=== PATIENT | female | born 1945 | race Caucasian/White ===

== ENCOUNTER → 2018-05-08 01:13 | Outpatient (CLI) | payer MEDICARE, SELFPAY ==
--- NOTE | 2018-05-08 10:34 | DI.REPORT_ITS ---
SYMPTOM/DIAGNOSIS: SCREENING, Z12.31 MAMMOGRAM: Mammograms were interpreted according to the usual protocol including computer analysis with CAD system, tomosynthesis and C view imaging. The breast tissue is of moderate radiodensity. There is no evidence of a mass. There are no suspicious calcifications. There has been no significant interval change when compared with prior images. Breast density category B. SUMMARY: No evidence of malignancy, Category 1-B. Yearly screening mammography is recommended. [facility] ASSESSMENT OF FINDINGS: Negative. Category 1. Patient will receive a letter notifying them of these results. BI-RADS category B. There are scattered areas of fibroglandular density.
== END ==
PROVIDERS: PCP Family Medicine; Visit Provider Family Medicine
DX: Z12.31 Encounter for screening mammogram for malignant neoplasm of breast (principal)
CPT/HCPCS: 77063; 77067

== ENCOUNTER 2019-04-22 12:01 | Outpatient (CLI) | payer MEDICARE, OTHER, SELFPAY ==
--- NOTE | 2019-04-22 11:45 | DI.RAD_ITS ---
SYMPTOMS/DIAGNOSIS: HIP PAIN, M25.559 RIGHT HIP AND PELVIS: Minimal degenerative changes are seen in the right hip. No acute fracture or dislocation is seen. The sacroiliac joints show mild degenerative changes. The symphysis pubis appears unremarkable. There is a sclerotic appearing focus on the right iliac bone not well characterized on this examination. Degenerative changes are seen in the spine. IMPRESSION: 1. Minimal degenerative changes of the right hip. 2. No acute abnormality. 3. Sclerotic focus in the right iliac bone. Further evaluation with x-ray of the pelvis with obliques may be obtained. CT scan may also be considered for further evaluation.
[2019-04-22 13:26] LABS: BUN 19 mg/dL (7-18); CREATININE 0.73 mg/dL (0.55-1.02); Calcium 9.3 mg/dL (8.5-10.1); Cholesterol 208 mg/dL (50-200); Glucose 93 mg/dL (70-100); HDL Cholesterol 67 mg/dL (40-60); Triglyceride 68 mg/dL (30-150)
[2019-04-22 13:27] LABS: ALT 30 U/L (12-78); AST 17 U/L (15-37); Alkaline Phosphatase 77 U/L (46-116); Anion Gap 8.5 mmol/L (3-11); Bilirubin, Total 0.4 mg/dL (0.2-1.0); CO2 28.5 mmol/L (21.0-32.0); Calculated LDL 128 mg/dL; Chloride 103 mmol/L (98-107); Potassium 4.3 mmol/L (3.5-5.1); Sodium 140 mmol/L (136-145); Total Protein 7.1 g/dL (6.4-8.2)
== END 2019-04-22 12:21 ==
PROVIDERS: PCP Family Medicine; Visit Provider Family Medicine
DX: M25.551 Pain in right hip (principal); E78.5 Hyperlipidemia, unspecified; M16.11 Unilateral primary osteoarthritis, right hip; R93.7 Abnormal findings on diagnostic imaging of other parts of musculoskeletal system
CPT/HCPCS: 36415; 80053; 80061; 83721; 73502

== ENCOUNTER 2020-05-03 02:06 | Outpatient (CLI) | payer MEDICARE, OTHER, SELFPAY ==
[2020-05-03 09:56] LABS: HCT 39.8 % (36.0-46.0); MCHC 32.7 % (32.0-36.0); MCV 91.7 fL (80-95); MPV 8.6 fL (8.0-11.0); Platelet Count 361 10^3/uL (130-400); RBC 4.34 10^6/uL (3.93-5.22); RDW 12.4 % (11.7-14.6); RDW-SD 41.7 fL; WBC 10.06 10^3/uL (4.4-10.8)
[2020-05-03 11:05] LABS: ALT 32 U/L (14-59); AST 19 U/L (15-37); Albumin 3.8 g/dL (3.4-5.0); Alkaline Phosphatase 71 U/L (46-116); Anion Gap 7.6 mmol/L (3-11); BUN 21 mg/dL (7-18); Bilirubin, Total 0.4 mg/dL (0.2-1.0); CO2 29.4 mmol/L (21.0-32.0); CREATININE 0.73 mg/dL (0.55-1.02); Calcium 9.3 mg/dL (8.5-10.1); Calculated LDL 100 mg/dL (<100); Chloride 103 mmol/L (98-107); Cholesterol 187 mg/dL (<200); Glucose 108 mg/dL (74-106); HDL Cholesterol 62 mg/dL (40-60); Potassium 4.2 mmol/L (3.5-5.1); Sodium 140 mmol/L (136-145); Total Protein 6.9 g/dL (6.4-8.2); Triglyceride 127 mg/dL (<150)
== END 2020-05-03 02:26 ==
PROVIDERS: PCP Family Medicine; Visit Provider Family Medicine
DX: E78.5 Hyperlipidemia, unspecified (principal); R26.89 Other abnormalities of gait and mobility; Z86.73 Personal history of transient ischemic attack (TIA), and cerebral infarction without residual deficits
CPT/HCPCS: 36415; 80053; 80061; 85027

== ENCOUNTER 2020-05-07 03:42 | Outpatient (CLI) | payer MEDICARE, OTHER, SELFPAY ==
--- NOTE | 2020-05-07 06:30 | DI.MAMMO_ITS ---
EXAM: MAMMO SCREENING CLINICAL HISTORY: screening,Z12.39 TECHNIQUE: Mammograms were interpreted according to the usual protocol including computer analysis w [employer] CAD system, tomosynthesis and C-view imaging. COMPARISON: FINDINGS: The breasts are of moderate density with fairly symmetrical distribution of fibroglandular tissue. N o dominant mass or clumped microcalcification is identified in either breast. The current examinatio n is compared with previous examinations including May 2018 and there has been no gross interval c hange in appearance in comparison with the prior studies. IMPRESSION: No specific evidence of malignancy at this time. Routine screening examinations are suggested at yea rly intervals in this age group according to the ACS ACR guidelines. BI-RADS Cat 1 - Negative: Breast Density - Category B - Scattered areas of fibroglandular density
== END 2020-05-07 04:02 ==
PROVIDERS: PCP Family Medicine; Visit Provider Family Medicine
DX: Z12.31 Encounter for screening mammogram for malignant neoplasm of breast (principal); R92.2 Inconclusive mammogram
CPT/HCPCS: 77063; 77067

== ENCOUNTER 2020-12-24 09:44 | Outpatient (CLI) | payer MEDICARE, OTHER, SELFPAY ==
[2020-12-25 13:23] LABS: COVID-19 RT-PCR UVMMC Result Negative (Negative)
== END 2020-12-24 09:45 | disposition home or self-care (01) ==
LOC: LBO 09:45
PROVIDERS: PCP Family Medicine; Visit Provider Family Medicine
DX: Z20.822 Contact with and (suspected) exposure to COVID-19 (principal); R05 Cough
CPT/HCPCS: U0003; U0005

== ENCOUNTER 2021-01-11 02:56 | Outpatient (CLI) | payer MEDICARE, OTHER, SELFPAY ==
[2021-01-12 12:24] LABS: COVID-19 RT-PCR UVMMC Result Negative (Negative)
== END 2021-01-11 02:57 | disposition home or self-care (01) ==
LOC: LBO 02:57
PROVIDERS: PCP Family Medicine; Visit Provider Family Medicine
DX: Z20.822 Contact with and (suspected) exposure to COVID-19 (principal)
CPT/HCPCS: U0003; U0005

== ENCOUNTER → 2021-01-20 13:21 | Outpatient (BNVA) | payer MEDICARE, OTHER, SELFPAY | PROVIDERS: PCP Family Medicine; Referring Provider Family Medicine; Visit Provider Physical Therapy Assistant | DX: Z12.11 Encounter for screening for malignant neoplasm of colon (principal); Z80.0 Family history of malignant neoplasm of digestive organs; I10 Essential (primary) hypertension ==

== ENCOUNTER 2021-02-02 04:14 | Outpatient (CLI) | payer MEDICARE, OTHER, SELFPAY ==
[2021-02-02 10:55] LABS: Source Nasal/Nares
[2021-02-02 18:49] LABS: COVID-19 PCR Negative (Negative)
== END 2021-02-02 04:15 | disposition home or self-care (01) ==
LOC: LBO 04:14
PROVIDERS: PCP Family Medicine; Visit Provider Surgery
DX: Z20.822 Contact with and (suspected) exposure to COVID-19 (principal); Z01.818 Encounter for other preprocedural examination
CPT/HCPCS: 87635

== ENCOUNTER 2021-02-04 11:43 | Day surgery (SDC) | payer MEDICARE, OTHER, SELFPAY ==
[2021-02-04 11:52] VITALS: BP 159/96; PULSE 83; RESP 16; TEMP 37.2; O2SAT 95
[2021-02-04] MEDS: Lactated Ringers 1,000 ML 80 ML IV (12:18)
--- NOTE | 2021-02-04 12:18 | W.ANESPRE ---
General Info Date of Service Date Performed: 02/04/21 Height: 5 ft Weight: 75.4 kg Body Mass Index (BMI): 32.4 Surgical Procedure: Operation Date: 02/04/21 12:50 Proposed Procedures Side Surgeon gayla Bay, Meds Allergies and Home Medications Allergies Allergy/AdvReac Type Severity Reaction Status Date / Time latex Allergy Intermediate Skin Rash Verified 02/04/21 11:57 as a child Sulfa (Sulfonamide Allergy Intermediate Hives Verified 02/04/21 11:57 Antibiotics) atorvastatin AdvReac Intermediate abdominal Verified 02/04/21 11:57 upset Home Medication Medication Instructions Recorded calcium carbonate 500 mg PO DAILY 12/20/12 multivitamin [Once Daily] 1 ea PO DAILY 12/20/12 omega-3 fatty acids-fish oil 1 ea PO DAILY 12/20/12 aspirin 81 mg tablet,delayed 81 mg PO DAILY #1 tab 04/29/20 release diazepam 2 mg tablet 2 mg PO QID PRN #50 tab-cap 04/29/20 rosuvastatin 5 mg tablet 5 mg PO Q48H #45 tab-cap 04/29/20 omeprazole 20 mg capsule,delayed 20 mg PO DAILY #30 cap 12/23/20 release acetaminophen 120 mg-codeine 12 5 ml PO Q8H PRN #118 ml 01/17/21 mg/5 mL oral solution albuterol sulfate 90 mcg/actuation 2 puff INHALATION Q8H #6.7 g 01/26/21 aerosol inhaler budesonide-formoterol HFA 80 2 puff INHALATION BID #10.2 g 01/31/21 mcg-4.5 mcg/actuation aerosol inhaler Current Visit Medications: Current Medications Generic Name Dose Route Start Last Admin Trade Name Freq PRN Reason Stop Dose Admin Ringer's Solution 1,000 mls @ 80 mls/hr 02/04/21 06:00 02/04/21 12:18 IV 03/05/21 23:59 80 mls/hr INFUSION AMMY Administration IV Miscellaneous Supplies 1 each 02/04/21 06:00 Iv Access IV 03/05/21 23:59 DIRECTED AMMY Sodium Chloride 0 ml 02/04/21 06:00 Normal Saline Flush 10 Ml Syr IV 03/05/21 23:59 PRN PRN Sodium Chloride 0 ml 02/04/21 06:00 Normal Saline 10 Ml Vial IJ 03/05/21 23:59 DIRECTED PRN Sterile Water 0 ml 02/04/21 06:00 Water,Injection,Sterile 10 Ml Vial IJ 03/05/21 23:59 DIRECTED PRN PFSH Active Problems Active Problems: Problem Status Onset Code 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 RENEE 01/14/18 (L) DR. RENEE History of arthroscopy of knee Hx of eye surgery post-cataract exctraction needed surgery for blurry eyes Tobacco Smoking/Tobacco Use Status: Never Passive smoking exposure: Yes Second hand exposure: Yes Alcohol Alcohol Intake: former Substance Use Substance use: Never Substance use type: does not use Counseling given: No Counseling provided: none Vital Signs and Lab Results Manually Entered Vital Signs Most Recent Manually Entered Vital Signs: Adult Blood Pressure: 159/96 Heart Rate: 83 Respirations: 16 Oxygen Saturation (%): 95 Temperature (C): 37.2 C Lab Results Blood Type / Crossmatch: No Data to Display Complete Blood Count: White Blood Count 10.06 10^3/uL (4.4-10.8) 05/03/20 09:48 05/03/20 Red Blood Count 4.34 10^6/uL (3.93-5.22) 05/03/20 09:48 05/03/20 Hemoglobin 13.0 g/dL (11.2-15.7) 05/03/20 09:48 05/03/20 Hematocrit 39.8 % (36.0-46.0) 05/03/20 09:48 05/03/20 Platelet Count 361 10^3/uL (130-400) 05/03/20 09:48 05/03/20 Complete Metabolic Panel: Sodium Level 140 mmol/L (136-145) 05/03/20 09:48 05/03/20 Potassium Level 4.2 mmol/L (3.5-5.1) 05/03/20 09:48 05/03/20 Chloride Level 103 mmol/L (98-107) 05/03/20 09:48 05/03/20 Carbon Dioxide Level 29.4 mmol/L (21.0-32.0) 05/03/20 09:48 05/03/20 Blood Urea Nitrogen 21 mg/dL (7-18) H 05/03/20 09:48 05/03/20 Creatinine 0.73 mg/dL (0.55-1.02) 05/03/20 09:48 05/03/20 Calcium Level 9.3 mg/dL (8.5-10.1) 05/03/20 09:48 05/03/20 Albumin 3.8 g/dL (3.4-5.0) 05/03/20 09:48 05/03/20 Glucose Level 108 mg/dL (74-106) H 05/03/20 09:48 05/03/20 Hemoglobin A1c 6.0 % (4.5-6.2) 12/18/17 10:45 12/18/17 Liver Function Panel: Alanine Aminotransferase (ALT/SGPT) 32 U/L (14-59) 05/03/20 09:48 05/03/20 Aspartate Amino Transf (AST/SGOT) 19 U/L (15-37) 05/03/20 09:48 05/03/20 Coagulation Panel: No Data to Display Cardiac Panel: No Data to Display Arterial Blood Gas: No Data to Display Venous Blood Gas: No Data to Display Pancreas Panel: No Data to Display Thyroid Panel: Thyroid Stimulating Hormone (TSH) 3.65 uIU/mL (0.36-3.74) 02/11/17 07:19 02/11/17 Infectious Disease: Coronavirus (COVID-19)(PCR) Negative (Negative) 02/02/21 08:52 02/02/21 Coronavirus 2019 Source Nasal/nares 02/02/21 08:52 02/02/21 Blood Cultures: No Data to Display Toxicology Panel: No Data to Display Imaging and Studies Imaging and Studies Echocardiogram Summary:: Anesthesia Assessment and Plan Anesthesia History Personal History: No History of Anesthesia Complications Family History: No Family History of Anesthesia Complications Exercise Tolerance Exercise Tolerance: Metabolic Equivalents>4 Pertinent Negatives Pertinent Negatives: No Symptoms of GERD (On medication and effective), No Major Cardiovascular Symptoms or Complaints and No Major Pulmonary Symptoms or Complaints (Chronic cough, inhaler helps) Cardiac & Pulmonary Exam Cardiac Exam: Normal S1/S2 Heart Sounds Pulmonary Exam: Clear Bilateral Breath Sounds Airway Exam Known Difficult Airway: No Mallampati Class: 2 Mouth Opening: Normal (> 3cm) Thyromental Distance: Less than 3 cm Neck Range of Motion: Full ROM Neck Circumference: Normal Teeth Condition: Normal Dentition ASA Classification ASA Score: ASA 2 Emergency Case?: No NPO Status NPO Status: NPO Clears >2 hours, Solids >8 hours Anesthesia Plan Anesthesia Technique: General Anesthesia Airway Planned: Natural Airway Monitors Used: Standard Monitors
--- NOTE | 2021-02-04 12:19 | W.COLOREPORT ---
Date of service: 02/04/21 Time of Service: 12:19 Colonoscopy Report Date of procedure: 02/04/21 Pre-op diagnosis general: family hx of CRC Post-op diagnosis procedure note: other (x2 polysp @ 80cm and diverticula ) Surgeon: Teresa Bay Anesthesia Type: General:No Airway Estimated blood loss (mL): 1 Pathology: other Complications: None Disposition: same day Prep: Miralax/Dulcolax Retraction Time: 10 Procedure Description: After informed consent was obtained the patient was taken to the procedure room and placed in a left decubitous position. Monitors were applied and a time out was done. The patients name, date of , procedure, allergies to medications and metal in their body was reviewed. The patient was then sedated. Once sedated and comfortable a rectal exam was done. External exam was normal. Internal exam revealed a normal sphincter tone and no palpable masses. The scope was then introduced and retrofelexed. GrADE I internal hemorrhoids were identified. The scope was then advanced to the cecum w/you difficulty. The TI and appendiceal orifice were identified. The prep was good. The scope was then slowly retracted over 10 minutes back into the rectum. She had x2 small 5mm flat polyps at 80 cm. They removed with a cold biopsy forcep. All specimen is retrieved and no bleeding is noted. She does have moderate diverticular disease confined to the sigmoid colon. There is no signs of active bleeding or infection. There are no AVMs or other abnormalities visualized on the colon today. The scope was removed and the patient was woken up and taken back to Same day surgery in stable condition. The patient tolerated the procedure well and there were no immediate complications. Follow up: The patient should follow up in 5 years (if you are still healthy for anesthesia), unless they develop changes in bowel habits or other new gastrointestinal complaints.
--- NOTE | 2021-02-04 12:19 | PDOC.DSDIS_ITS ---
Discharge Plan Disposition Patient Disposition: HOME Condition: Good Discharge Details Reason For Visit: colon scope Attending Provider: Teresa Bay Primary Care Provider: Tete Goins Home Meds and New Rx's Prescriptions: Continued omeprazole 20 mg capsule,delayed release(DR/EC) 20 mg PO DAILY Qty: 30 RF: 4 diazepam 2 mg tablet 2 mg PO QID PRN (Reason: anxiety) Qty: 50 RF: 0 rosuvastatin [Crestor] 5 mg tablet 5 mg PO Q48H Qty: 45 RF: 12 aspirin [Adult Low Dose Aspirin] 81 mg tablet,delayed release (DR/EC) 81 mg PO DAILY Qty: 1 RF: 0 multivitamin [Once Daily] 1 EACH tablet 1 ea PO DAILY RF: 0 calcium carbonate 500 MG tablet 500 mg PO DAILY RF: 0 omega-3 fatty acids-fish oil 1 EACH capsule 1 ea PO DAILY RF: 0 acetaminophen-codeine 120-12 mg/5 mL solution 5 ml PO Q8H PRN (Reason: pain) Qty: 118 RF: 3 albuterol sulfate 90 mcg/actuation HFA aerosol inhaler 2 puff inhalation Q8H Qty: 6.7 RF: 4 budesonide-formoterol [Symbicort] 80-4.5 mcg/actuation HFA aerosol inhaler 2 puff inhalation BID Qty: 10.2 RF: 2 Discontinued bisacodyl [Dulcolax (bisacodyl)] 5 mg tablet,delayed release (DR/EC) 5 mg PO ONCE Qty: 4 RF: 0 polyethylene glycol 3350 17 gram/dose powder 238 g PO ONCE Qty: 238 RF: 0 Discharge Instructions Additional Instructions: DSU Colonoscopy Post- Op Instructions Instructions for Everyone who is given Anesthesia: For your safety, please do the following for the next twenty-four (24) hours: *Do Not operate a motor vehicle (car, truck, motorcycle, etc.) *Do Not drink alcoholic beverages or use any recreational drugs for the first 24 hours or while taking pain medications. The medications in your body may have a reaction that can be dangerous. *Do Not make any important decisions or sign any important papers. Findings: x2 polyps. My office will send you a letter with the results of the polyp in approximately 3 weeks time Diverticula. Follow a high-fiber diet and avoid straining to move your bowels. Follow up: Repeat Colonoscopy in 5 yrs if still healthy for surgery. 1. No lifting over 20 pounds or strenuous activity for the first 24 hours after your procedure. After 24 hours there are no restrictions on your activity but you may feel fatigued for a few days. 2. After you arrive home you may have a light meal and return to your normal diet as you can tolerate it without feeling sick to your stomach. 3. You may have a bloated, gaseous feeling in your belly (abdomen) after a colonoscopy. Passing gas and belching will help. Walking or lying down on your left side with your knees flexed may relieve the discomfort. Call the office at [phone] (Office) or [phone] (Hospital) right away if you notice any of the following: a.Vomiting of blood or ?coffee ground stools?. b.Rectal bleeding 1Tbsp, blood clots or continuous bleeding. c.Severe belly (abdominal) pain. d.A hard distended belly (abdomen) and an inability to pass gas. 4. Please don?t expect to have a normal BM (bowel movement) for 2-3 days after your procedure. 5. If there are questions regarding the findings of your procedure, please contact your doctor 6. If you are unable to contact your doctor with a problem, contact the hospital at [phone]. 7. Continue all your regular medications unless directed otherwise. I understand the above instructions and have no questions. Signature of Patient or Adult Escort Name of Responsible Adult Escort Signature of Nurse Date/Time Activity:: as above Diet:: as above Discharge Orders Discharge Orders: Discharge Order (Routine); Ordered 02/03/21 Ordered By: Teresa Bay DS: Diagnosis Discharge Diagnosis (1) Family history of colon cancer: Status: Acute (2) Adenomatous polyps: Status: Acute
[2021-02-04 12:20] VITALS: BMI 32.4
[2021-02-04 12:30] VITALS: BP 159/96; PULSE 83; RESP 16; TEMPC 37.2; O2SAT 95
--- NOTE | 2021-02-04 12:54 | BOWEL_PTH ---
PATIENT: Judi Jackson LOC: [facility] U#:[id number] AGE/SX: 75/F ROOM: RE02/04/[address]: Teresa Bay : 1945 BED: DIS: 02/04/2021 SPEC #: [id number] RECD: 02/04/21 16:52 STATUS: LYNDSEY RENila #: [id number] MEDARDO: 02/04/21 12:[address]: Teresa Bay DEPT: Surgical Specimen RECD BY: Mercedes Cardona ENTERED: 02/04/21 16:52 SP TYPE: Bowel OTHR DR: Tete Goins MD, DC Tissues: 1 - BIOPSY BOWEL Procedures: GROSS AND MICRO LEVEL 4 Comments: [id number]
[2021-02-04 13:12] VITALS: BP 139/87; PULSE 80; RESP 16; TEMP 36.5; O2SAT 95
--- NOTE | 2021-02-04 14:00 | W.ANESPOSTOP ---
Postoperative Evaluation Date, Time and Location Date Performed: 02/04/21 Time Performed: 14:01 Patient Location: Day Surgery Unit Vital Signs Most Recent Imported Vital Signs: Most Recent Vital Signs Temp Pulse Resp BP Pulse Ox 36.5 C 80 16 139/87 95 02/04/21 13:12 02/04/21 13:12 02/04/21 13:12 02/04/21 13:12 02/04/21 13:12 Pain Score Most Recent Pain Score: Most Recent Pain Score Pain Level 0 02/04/21 13:12 Assessment Mental Status: Awake (Alert & Oriented to Patient Baseline) Airway and Respiratory Function: Patent airway with normal (patient baseline) respiratory exam Cardiovascular Function: Hemodynamically Stable Hydration Status: Adequately Hydrated Nausea & Vomiting: No Nausea or Vomiting Pain: Pt. Denies Any Pain Peripheral Nerve Block: Patient did not receive a nerve block
== END 2021-02-04 11:44 | disposition home or self-care (01) ==
PROVIDERS: PCP Family Medicine; Visit Provider Surgery
PROC: 0DJD8ZZ Inspection of Lower Intestinal Tract, Via Natural or Artificial Opening Endoscopic (ICD-10-PCS; CPT 45378; principal; 2021-02-04 12:45)
DX: Z12.11 Encounter for screening for malignant neoplasm of colon (principal); Z80.0 Family history of malignant neoplasm of digestive organs; D12.4 Benign neoplasm of descending colon; K57.30 Diverticulosis of large intestine without perforation or abscess without bleeding
CPT/HCPCS: 45380; 88305; J2001

== ENCOUNTER 2021-04-28 04:12 | Outpatient (CLI) | payer MEDICARE, OTHER, SELFPAY ==
[2021-04-28 11:32] LABS: Hemoglobin A1C 6.1 % (<5.7)
[2021-04-28 12:42] LABS: ALT 40 U/L (14-59); AST 25 U/L (15-37); Alkaline Phosphatase 74 U/L (46-116); Anion Gap 8.2 mmol/L (3-11); BUN 18 mg/dL (7-18); Bilirubin, Total 0.4 mg/dL (0.2-1.0); CO2 29.8 mmol/L (21.0-32.0); CREATININE 0.8 mg/dL (0.55-1.02); Calcium 9.1 mg/dL (8.5-10.1); Calculated LDL 125 mg/dL (<100); Chloride 104 mmol/L (98-107); Cholesterol 212 mg/dL (<200); Glucose 87 mg/dL (74-106); HDL Cholesterol 62 mg/dL (40-60); Potassium 4.4 mmol/L (3.5-5.1); Sodium 142 mmol/L (136-145); Total Protein 7.1 g/dL (6.4-8.2); Triglyceride 129 mg/dL (<150)
== END 2021-04-28 04:13 | disposition home or self-care (01) ==
LOC: LBO 04:12
PROVIDERS: PCP Family Medicine; Visit Provider Family Medicine
DX: E78.5 Hyperlipidemia, unspecified (principal); I10 Essential (primary) hypertension; E11.9 Type 2 diabetes mellitus without complications; Z86.73 Personal history of transient ischemic attack (TIA), and cerebral infarction without residual deficits
CPT/HCPCS: 36415; 80053; 80061; 83036

== ENCOUNTER 2021-05-30 01:57 | Outpatient (CLI) | payer MEDICARE, OTHER, SELFPAY ==
--- NOTE | 2021-05-30 07:30 | DI.MAMMO_ITS ---
Exam(s) MAMMO SCREENING EXAM: MAMMO SCREENING CLINICAL HISTORY: screening,Z12.39 TECHNIQUE: Bilateral full field digital CC and MLO mammographic images were obtained with 3D tomosyn thesis and utilizing computer aided detection (CAD). COMPARISON: Available for comparison. FINDINGS: Masses/Architectural Distortion: None seen. Microcalcifications: No suspicious pleomorphic-type are seen. Skin Thickening/Nipple Retraction: None. IMPRESSION: 1. No significant interval change with no specific features of malignancy noted. 2. Unless there is more urgent need, screening mammography is recommended, as per [employer] guidelines. BI-RADS Category 1 - Negative Breast Density - Category B - Scattered areas of fibroglandular density Breast density category C or D implies that the patient has dense breast tissue. Dense breast tissue is very common and is not abnormal but dense breast tissue can make it harder to find cancer on a ma mmogram. Also, dense breast tissue may increase their breast cancer risk. This information about the result of the mammogram report was provided to the patient to raise their awareness. Use this report when you speak with the patient about their risks for breast cancer, which includes their family hist ory. At that time, you may recommend for more screening tests (Ultrasound or MRI) as they might be us eful based on their risk. A negative radiographic report should not delay biopsy if a dominant or clinically suspicious mass is present. Up to ten percent of cancers are not identified on mammography. A negative report may reinforce clinical impression. Adenosis and dense breasts may obscure an underlying neoplasm. False positive reports average 6 to 10%. Patient will receive a letter notifying them of these results.
== END 2021-05-30 02:17 ==
PROVIDERS: PCP Family Medicine; Visit Provider Family Medicine
DX: Z12.31 Encounter for screening mammogram for malignant neoplasm of breast (principal)
CPT/HCPCS: 77063; 77067

== ENCOUNTER 2022-05-04 03:05 | Outpatient (CLI) | payer OTHER, SELFPAY ==
[2022-05-04 10:55] LABS: ALT 35 U/L (14-59); AST 20 U/L (15-37); Albumin 3.9 g/dL (3.4-5.0); Alkaline Phosphatase 74 U/L (46-116); Anion Gap 7.5 mmol/L (3-11); BUN 19 mg/dL (7-18); Bilirubin, Total 0.4 mg/dL (0.2-1.0); CO2 28.5 mmol/L (21.0-32.0); CREATININE 0.7 mg/dL (0.55-1.02); Calcium 9.1 mg/dL (8.5-10.1); Chloride 100 mmol/L (98-107); Glucose 96 mg/dL (74-106); Potassium 4.3 mmol/L (3.5-5.1); Sodium 136 mmol/L (136-145); Total Protein 7.2 g/dL (6.4-8.2)
[2022-05-04 11:11] LABS: Calculated LDL 127 mg/dL (<100); Cholesterol 209 mg/dL (<200); HDL Cholesterol 71 mg/dL (40-60); Triglyceride 56 mg/dL (<150)
== END 2022-05-04 03:06 | disposition home or self-care (01) ==
LOC: LBO 03:06
PROVIDERS: PCP Family Medicine; Visit Provider Family Medicine
DX: I10 Essential (primary) hypertension (principal); E11.9 Type 2 diabetes mellitus without complications; E78.5 Hyperlipidemia, unspecified; R26.89 Other abnormalities of gait and mobility
CPT/HCPCS: 36415; 80053; 80061

== ENCOUNTER → 2022-06-02 00:48 | Outpatient (CLI) | payer OTHER, SELFPAY ==
--- OUTSIDE RECORDS SUMMARY | 2022-06-02 00:51 | XMS_ITS | Encounter Summary ---
:1945 Author Organization [facility] [place] [address] Care Team Providers Name Role Phone Tete Goins MD Primary Care Provider Encounter Details Date Type Department Care Team Description 07/01/2015 Office Visit Physical Therapy at [facility], DR SYDNEY Larson; [facility] Lisa Spencer, PT [facility] PHYSICAL MEDICINE & [place] [address] [place] [address] Social History Tobacco Use Types Packs/Day Years Used Date Never Smoker Smokeless Tobacco: Never Used Sex Assigned at Date Recorded Not on file documented as of this encounter Progress Notes Lisa Garg, PT - 07/01/2015 3:15 PM EDT Physical Therapy Progress Note: Outpatient Date of Exam/First treatment: 04/28/2015 Date of Onset October 2013 Referring Provider: Leonardo Bowling MD Diagnosis: 1. Imbalance 2. Vertigo Medicare Cert Period: 04/28/2015 - 06/22/15, 06/23/15 - 08/18/15 G-Code: Mobility Status Modifier CURRENT CJ - At least 20 percent but less than 40 percent impaired, limited or restricted PROJECTED CI - At least 1 percent but less than 20 percent impaired, limited or restricted DISCHARGE Not Discharged Yet - Ongoing G Code Rationale: This G-Code and these disability modifiers were selected as the primary therapy goal based upon the patient's evaluation including the following functional test(s) DHI - Dizziness Handicapped Inventory and FGA - Functional Gait Assessment. Current ability measures, co-morbidities andclinical judgement were also used to select the disability modifier. This Patient's current G-Code functional level is 35% impaired based upon imbalance and gait instability revealed in examination, functional testing, and self-reported limitation related to dizziness/unsteadiness. Medicare Therapy G-Code Date Tracking: (Update G-Code status every 10 visits or when code changes) 1 2 3 4 5 6 7 8 9 10 04/28/15 05/04/15 05/24/15 05/31/15 06/15/15 06/22/15 07/01/15 Functional Limitations: Patient reports difficulty walking, reading, and is unable to perform several IADLs (driving, gardening, housework) secondary to imbalance Previous Level of Function: Independent, active S: Patient reports she is able to take 15 minute walks, and has noticed the sensation that she is still moving has decreased. Also feels better when descending stairs. O: Therex: Neuromuscular Re-Ed ([id number]) 45 min Treatment Provided: ?? Treadmill walking with head turns x 5 minutes ?? No pathway deviation noted today ?? Wall posture with chin tuck x10 sec hold ?? With red TB ER 3 x10 reps (added to HEP) ?? Flexibility: levator scapulae, UT, SCM (added to HEP) ?? Walking with diagonal head turns x 4 reps ?? No pathway deviation, good speed ?? VOR x2 - patient able to maintain focus on target without blurring/doubling ?? Balance board with head turns 3x30 seconds, mild instability initially but patient was able to maintain balance without UE support ?? Sit to stands on 2 foam with eyes closed 3x10 reps ?? MTEC compliant (L) 30 sec (R) 30 sec, ankle and hip strategies (added to HEP) ?? Walking with eyes closed x3 reps ?? 6.16-6.60 seconds to complete 20 ft, no pathway deviation or imbalance noted. ?? Tandem walking - 4-12 steps with practice Outcome measures: None this session Home Exercise Program: Pt was provided with written instruction, educated regarding and practiced the following exercises: 1. VOR x2 in standing 2. MTEC compliant 3. Walking with head turns - diagonal 4. Tandem stance 5. 360 degree pivots - discontinued 6. Sit to stands 7. Postural exercise: UT/LS/SCM stretches, wall posture with theraband ER Assessment: Pat presents with improvement in subjective symptoms, and was able to progress several exercises from HEP. Pat continues to benefit from PT for static and dynamic balance challenges, gait activities, and vestibular therex, and based upon current progression will be ready for discharge to home program in several visits. ST Goals: 05/26/15 (4 weeks) - extended to 07/26/15 1. Independent with home exercise program. 2. DVA without blurring or doubling of letters to decrease symptoms in crowds/busy visual MET 3. Walk with head turns without slowing or drift to improve balance looking around during ADL MET LT Goals 06/23/15 (8 weeks) - extended to 08/23/15 1. DHI 40 or lower to indicate functional improvement with regards to dizziness or unsteadiness MET 2. Improvement in FGA to >24 to demonstrate clinical improvement in balance and decreased risk for falls Plan: Frequency: 1 x/week x 8 weeks, tapering as appropriate based upon clinical and functional progress. Stretching, Therapeutic exercise, Patient/Family education, Body Mechanics, Posture, Home Exercise Program and Balance and Gait Training , vestibular therex Informed Consent: The patient understands and agrees to the physical therapy treatment plan and goals. Total Treatment time: 45 minutes Total Timed Code Treatment: 45 minutes Lisa Garg, PROSPER, DPT [facility] Department documented in this encounter Plan of Treatment Not on filedocumented as of this encounter Visit Diagnoses Diagnosis Imbalance Abnormality of gait Vertigo Dizziness and giddiness documented in this encounter Care Teams Engineer Third Assistant Relationship Specialty Start Date End Date Tete Goins MD PCP - General 04/28/[address] [place] [address] documented as of this encounter
--- OUTSIDE RECORDS SUMMARY | 2022-06-02 00:51 | XMS_ITS | Encounter Summary ---
:1945 Author Organization [facility] [place] [address] Care Team Providers Name Role Phone Tete Goins MD Primary Care Provider Reason for Visit Reason Onset Date Comments Appointment 08/06/2019 Encounter Details Date Type Department Care Team Description 08/06/2019 Telephone Ophthalmology at [facility] Jim Oliva MD Appointment [facility] [place] [address] [place] [address] [phone] (Wo rk) Social History Tobacco Use Types Packs/Day Years Used Date Never Smoker Smokeless Tobacco: Never Used Sex Assigned at Date Recorded Not on file documented as of this encounter Miscellaneous Notes Telephone Encounter - Evelin Wahl - 08/11/2019 12:19 PM EST Scheduled per Nilda Greene Telephone Encounter - Evelin Wahl - 08/06/2019 12:51 PM EST Left message for pt to call back to schedule appointment from referral yag ou Please schedule next available new patient yag w/ laser and add to wait list documented in this encounter Plan of Treatment Not on filedocumented as of this encounter Visit Diagnoses Not on filedocumented in this encounter Care Teams Croze Cutter Helper Relationship Specialty Start Date End Date Tete Goins MD PCP - General 04/28/[address] [place] [address] documented as of this encounter
--- OUTSIDE RECORDS SUMMARY | 2022-06-02 00:51 | XMS_ITS | Encounter Summary ---
:1945 Author Organization [facility] [place] [address] Care Team Providers Name Role Phone Tete Goins MD Primary Care Provider Encounter Details Date Type Department Care Team Description 04/28/2015 Office Visit Physical Therapy at [facility], DR SYDNEY Larson; [facility] Leonardo Dewey MD [facility] [place] [address] [place] [address] Lisa Garg, PT [facility] PHYSICAL MEDICINE & [place] [address] Social History Tobacco Use Types Packs/Day Years Used Date Never Smoker Smokeless Tobacco: Never Used Sex Assigned at Date Recorded Not on file documented as of this encounter Progress Notes Lisa Garg, PT - 04/28/2015 7:43 AM EDT Images from the original note were not included. Physical Therapy Initial Evaluation Note: Outpatient Date of Exam/First treatment: 04/28/2015 Date of Onset October 2013 Referring Provider: Leonardo Bowling MD Diagnosis: 1. Imbalance 2. Vertigo Medicare Cert Period: 04/28/2015 - 06/22/15 G-Code: Mobility Status Modifier CURRENT CK - At least 40 percent but less than 60 percent impaired, limited or restricted PROJECTED CI [...] This Patient's current G-Code functional level is 50% impaired based upon imbalance and gait instability revealed in examination, functional testing, and self-reported limitation related to dizziness/unsteadiness. Medicare Therapy G-Code Date Tracking: (Update G-Code status every 10 visits or when code changes) 1 2 3 4 5 6 7 8 9 10 04/28/15 Functional Limitations: Patient reports difficulty walking, reading, and is unable to perform several IADLs (driving, gardening, housework) secondary to imbalance Previous Level of Function: Independent, active Medical/Surgical History: refer to medical record Medications: refer to medical record History: Judi Jackson is a 69 y.o. female referred to physical therapy by Dr. Leonardo Bowling for evaluation of imbalance and dizziness. Patient was diagnosed with vertigo in October 2013, and reports since the onset of her dizziness she has had balance issues. Was referred to physical therapy by her PCP in [place] and was treated with Ivette maneuver, which helped a little bit but did notresolve her symptoms completely. Initially, patient experienced vertigo when turning over in bed, with symptoms of the room spinning which would last 30 seconds. Currently, she no longer has sensation of room spinning, but does notice a floating sensation in her head when standing or sitting quickly, looking up or down, bending down to knot picker cloth an object or turning over in bed. Notes difficulty withher balance when walking on unstable surfaces or in unfamiliar places, and endorses holding onto someone for security. Tends to lose her balance to the right. Is unable to participate in walking for exercise, gardening or driving, and would like to be able to return to activities she enjoys. Hearing loss: no Tinnitus: yes, constant ringing in both ears Aural Fullness: sometimes, not constant because seasonal allergy related Aural Pain: not currently Migraine history: yes, every 5-6 weeks, stress related Number of Falls in last year: none Social/work history: Lives with MICHELLE Lewis. 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 Pain: none Dizziness rating range with ADL: 2/10 to 410 Dizziness rating at start of eval: 4/10 Objective Findings: Observations: Posture Mild FHP/RSP Cervical Evaluation: Cervical ROM (degrees): Sidebend (L) 30 (R) 30 Flexion 40 Extension 45 Rotation (L) 62 (R) 75 Cervical Isometrics: (-) dizziness, strength WNL Palpation: (-) tenderness to palpation SCM, upper trapezius, levator scapulae, suboccipitals, mastoid tip and cervical paraspinals Sitting VAT: (L) (-); (R) (-) Cervical Vertigo test (-)(L); (-) (R) Oculomotor testing: Smooth Pursuit WNL , Saccades WNL Accomodation: impaired, blurry/doubling of image at 8 inches from face Ocular Alignment: Bifocals, need all the time VOR/DVA: Head thrust (-) (L) (R), DVA 10->8; WNL (below normal with > 3 line loss if 65 years or older) Jim-Hallpike: (L) (-) (R) (-) , Horizontal Canal (L) (-) (R) (-), Anterior canal head hanging test (-) Gait mild pathway deviation when walking on level surface, slow speed, decreased arm swing Computerized Dynamic Posturography (CDP) (please see scanned documents): 1. Sensory Organization Testing: Condition 1 (eyes open, stable surface, stable reference): WNL Condition 2 (eyes closed, stable surface, stable reference): Below normal x3 Condition 3 (eyes open, sway reference): WNL Condition 4 (eyes open, sway surface): Below normal 1 &2, WNL 3 Condition 5 (eyes closed, sway surface): WNL Condition 6 (eyes open, sway surface, sway reference): WNL 1&3, Below normal 2 Composite score 72/100; Below normal in somatosensory and visual averages, WNL vestibular average 2. Motor Control: Backward Translation: WNL Forward Translation: WNL Outcome measures: Functional Gait Assessment: (22 or less = fall risk) Dizziness Handicapped Inventory (DHI): 80/100 (higher score = greater self rated disability with regards to dizziness/unsteadiness) Home Exercise Program: Pt was provided with, educated on and practiced the following exercises: 1. VOR x1 in sitting 2. Romberg EC Assessment: These findings are consistent with altered gaze stabilization and decreased use of visual and proprioceptive information for mobility with Sensory Organization Test (SOT) scores on NeurocomSmart Balance Master in visual and somatosensory averages below normal. Motor Control Test (MCT) scores on the Neurocom are within normal limits. Patient presents with multifactorial unsteadiness and scores as a fall risk on Functional Gait Assessment (FGA). Self reported dysfunction related to dizziness or unsteadiness (DHI) is in the severe category, scoring 80/100. Judi Jackson would benefit fromPT for static and dynamic balance challenges, gait activities, and vestibular therex. ST Goals: 05/26/15 (4 weeks) 1. Independent with home exercise program. 2. DVA without blurring or doubling of letters to decrease symptoms in crowds/busy visual 3. Walk with head turns without slowing or drift to improve balance looking around during ADL LT Goals 06/23/15 (8 weeks) 1. DHI 40 or lower to indicate functional improvement with regards to dizziness or unsteadiness 2. Improvement in FGA to >24 to demonstrate clinical improvement in balance and decreased risk for falls Interventions completed today: initial evaluation, patient education and home exercise program including VOR x1, Romberg EC Plan: Frequency: 1 x/week x 8 weeks, tapering as appropriate based upon clinical and functional progress. Stretching, Therapeutic exercise, Patient/Family education, Body Mechanics, Posture, Home Exercise Program and Balance and Gait Training , vestibular therex Informed Consent: The patient consented to the physical therapy evaluation. The patient understands and agrees to the physical therapy treatment plan and goals. Total Treatment time: 80 minutes extended evaluation Total Timed Code Treatment: 0 minutes Lisa Garg PT, DPT [facility] Outpatient Rehabilitation Department documented in this encounter Plan of Treatment Not on filedocumented as of this encounter Visit Diagnoses Diagnosis Imbalance Abnormality of gait Vertigo Dizziness and giddiness documented in this encounter Care Teams Sales Merchandiser Relationship Specialty Start Date End Date Dobbertin, Tete, MD PCP - General 04/28/[address] [place] [address] documented as of this encounter
--- OUTSIDE RECORDS SUMMARY | 2022-06-02 00:51 | XMS_ITS | Encounter Summary ---
:1945 Author Organization [place] [address] Care Team Providers Name Role Phone Tete Goins MD Primary Care Provider Reason for Visit Reason Comments Pseudophakia Encounter Details Date Type Department Care Team Description 08/22/2019 Office Visit Ophthalmology at [facility] C Jim Armstrong [place] [address] [place], [place] [address] (Wo rk) Social History Tobacco Use Types Packs/Day Years Used Date Never Smoker Smokeless Tobacco: Never Used Alcohol Use Standard Drinks/Week Comments Not Currently 0 (1 standard drink = 0.6 oz pure alcoho l) Sex Assigned at Date Recorded Not on file documented as of this encounter Progress Notes Jim Armstrong MD - 08/22/2019 3:15 PM EST PCO OU (OD>OS) S/p YAG Capsulotomy OD done on 08/15/2019 [facility] and IOP doing well following procedure Judi is very happy with outcome of the right eye and would like to proceed with YAG Capsulotomy,left eye today. Pseudophakia OU (2017 Dr Martinez) Plan: YAG Capsulotomy OS today Return to clinic: Within 1 month - HCK, IOP check documented in this encounter Plan of Treatment Not on filedocumented as of this encounter Visit Diagnoses Diagnosis PCO both eyes After-cataract, unspecified documented in this encounter Care Teams Housekeeper Cleaning Cooking Relationship Specialty Start Date End Date Tete Goins MD PCP - General 04/28/[address] [place] [address] documented as of this encounter
--- OUTSIDE RECORDS SUMMARY | 2022-06-02 00:51 | XMS_ITS | Encounter Summary ---
:1945 Author Organization [facility] [place] [address] Care Team Providers Name Role Phone Gianna Luna MD Primary Care Provider Encounter Details Date Type Department Care Team Description 05/13/[address] [facility] José Reyes Jr.[facility] [address] [place], [place] [address] [address] [place] [address] [phone] (Wo rk) Social History Tobacco Use Types Packs/Day Years Used Date Never Assessed Sex Assigned at Date Recorded Not on file documented as of this encounter Plan of Treatment Not on filedocumented as of this encounter Visit Diagnoses Not on filedocumented in this encounter Care Teams Director Medical Relationship Specialty Start Date End Date Gianna Luna MD PCP - General 08/23/10 06/22/14 [address] [place], [place] [address] documented as of this encounter
--- OUTSIDE RECORDS SUMMARY | 2022-06-02 00:51 | XMS_ITS | Encounter Summary ---
:1945 Author Organization [facility] [place] [address] Care Team Providers Name Role Phone Tete Goins MD Primary Care Provider Encounter Details Date Type Department Care Team Description 05/24/2015 [facility]Up Physical Therapy [place] [facility] Lisa Garg, PT Imbalance; [facility] [place] [address] PHYSICAL MEDICINE & [phone] [place] [address] Social History Tobacco Use Types Packs/Day Years Used Date Never Smoker Smokeless Tobacco: Never Used Sex Assigned at Date Recorded Not on file documented as of this encounter Progress Notes Lisa Garg, PT - 05/24/2015 8:36 AM EDT Physical Therapy Progress Note: Outpatient Date [...] 7 8 9 10 04/28/15 05/04/15 05/24/15 Functional Limitations: Patient reports difficulty walking, reading, and is unable to perform several IADLs (driving, gardening, housework) secondary to imbalance Previous Level of Function: Independent, active S: Patient reports dizziness has been getting a little better. Exercises feel easier to do. She notices when she goes up and down stairs she feels she has to go down slow because otherwise my head isn't connected. Also notices a sense of imbalance with back and forth motion during sweeping and mopping activities. O: Therex: Neuromuscular Re-Ed (59254) 45 min Treatment Provided: ?? Reviewed HEP ?? Feet together EO on 2 foam with head turns x 3 reps ?? Mild postural sway, ankle strategy ?? Doubling of target at ~15-20 seconds when looking to the left, improved with slowed speed ?? Walking with head turns ?? Horizontal x 2 reps ?? Mild to moderate pathway deviations, improved with subsequent practice ?? Vertical x 2 reps ?? No pathway deviation noted, patient reported mild dizziness ?? Diagonal x 4 reps (added to HEP) ?? Mild to moderate pathway deviation when looking up right down left, mild dizziness reported ?? Tandem stance (L) 30 seconds (R) 30 seconds, mild postural sway ankle strategy ?? 360 degree pivots: (L) 2.6, 1.95 seconds; (R) 1.93, 2.16 seconds; (+) dizziness/imbalance with faster speed ?? Walking forward/backward changing direction quickly - patient reported sense of feeling off balance, improved with slower speed of direction change ?? Walking forward with 180 degree turns - not dizziness noted ?? Stepping forward/backward - no dizziness noted when stance limb remained stationary, when stepping completely forward and backward, patient reported dizziness. ?? Treadmill walking with head turns, then at variable speeds ?? Pt unable to maintain faster than 0.6 mph during head turning activity, 0.6- 1.0 mph for velocity changes ?? No LOB noted Outcome measures: Four Square Step Test Trial 1: 8.90 seconds Trial 2: 8.51 seconds Average time: 8.7 seconds Older Adults/ Geriatric: (John & Esau, 2002; n = 81 community dwelling adults > 65 years old) > 15 second = at risk for multiple falls Vestibular: (Celeste et al, 2007; n = 32; mean age = 63.7 (17.8) years) > 12s = at risks for falls Home Exercise Program: Pt was provided with written instruction, educated regarding and practiced the following exercises: 1. VOR x1 in sitting 2. Romberg EC 3. Walking with head turns - diagonal 4. Tandem stance 5. 360 degree pivots Assessment: Pat demonstrated continued improvement with both static and dynamic balance. Has been diligent with HEP performance. Imbalance seems to be correlated with velocity of movement, particularlychanges in linear acceleration from forward to backward and backward to forward. Patient continues to benefit from PT for static [...] minutes Total Timed Code Treatment: 45 minutes neuro re-ed (3) Lisa Garg PT, DPT [facility] Outpatient Rehabilitation Department documented in this encounter Plan of Treatment Not on filedocumented as of this encounter Visit Diagnoses Diagnosis Imbalance Abnormality of gait Vertigo Dizziness and giddiness documented in this encounter Care Teams Imaging Aide Relationship Specialty Start Date End Date Tete Goins MD PCP - General 04/28/[address] [place] [address] documented as of this encounter
--- OUTSIDE RECORDS SUMMARY | 2022-06-02 00:51 | XMS_ITS | Encounter Summary ---
:1945 Author Organization [facility] [place] [address] Care Team Providers Name Role Phone Tete Goins MD Primary Care Provider Reason for Visit Reason Comments Vertigo Encounter Details Date Type Department Care Team Description 04/28/2015 Office Visit Otol[facility]ology at [facility] Dizziness and giddiness; [facility] Lina Nicole MD BPPV (benign paroxysmal positional verti go), unspecified laterality; [place] [address] [facility] Abnormality of gait [phone] [facility] OT[facility]Y DEPT. [place], [place] [address] Social History Tobacco Use Types Packs/Day Years Used Date Never Smoker Smokeless Tobacco: Never Used Sex Assigned at Date Recorded Not on file documented as of this encounter Last Filed Vital Signs Vital Sign Reading Time Taken Comments Blood Pressure 129/71 04/28/2015 4:20 PM EDT Pulse 85 04/28/2015 4:20 PM EDT Temperature - - Respiratory Rate - - Oxygen Saturation - - Inhaled Oxygen Concentration - - Weight 74.8 kg (165 lb) 04/28/2015 4:20 PM EDT Height 152.4 cm (5') 04/28/2015 4:20 PM EDT Body Mass Index 32.22 04/28/2015 4:20 PM EDT documented in this encounter Progress Notes Leonardo Bowling MD - 04/29/2015 4:10 PM EDT Subjective: Patient ID: Judi Jackson is a 69 y.o. female. This patient is seen in consult today at the request of their primary caregiver and the referring provider, Davie Green HPI: Onset of dizziness in Oct. Orginally told she had vertigo. She was having positional dizziness at that time - worse on her left side. She still has this symptom intermittently, but now she avoids lyign flat (she uses a wedge pillow). She does occasionally have dizziness with loooking overhead or stooping over, or with standing up after she has been sitting for a while. She describes this as more of a lightheaded feeling. Her major complaint at this time is poor balance, disequilibriumor lightheadedness. She c/o nausea w/o emesis and difficulty walking. She does have tinnitus on bothsides, but no HL. She occassionally has fullness and pressure in her ears when her sinuses are conges lilliam, but this doesn't seem to be temporally related to the dizziness. She has a h/o migraines with severe BONNER roughly every 5 - 6 week. With these events, she also experiences some numbness around her mouth. She does not experience this with the dizziness. She had an MRI which should a prior CVA and was seen by a neurologist who found no defects. She has also been treated in the past by PT with an Ivette bueno. Past Medical History Diagnosis Date ??? Migraines ??? Arthritis ??? Stroke ??? Pneumonia History Substance Use Topics ??? Smoking status: Never Smoker ??? Smokeless tobacco: Never Used ??? Alcohol Use: Not on file No family history on file. FH for migraine Review of Systems Neurological: Positive for dizziness, light-headedness and headaches. Objective: Physical Exam Constitutional: She is oriented to person, place, and time. She appears well- developed and well-nourished. HENT: Head: Normocephalic and atraumatic. Right Ear: Tympanic membrane, external ear and ear canal normal. No drainage, swelling or tenderness. Tympanic membrane is not injected, not perforated and not retracted. Tympanic membrane mobility is normal. No middle ear effusion. Left Ear: Tympanic membrane, external ear and ear canal normal. No drainage, swelling or tenderness.Tympanic membrane is not injected, not perforated and not retracted. Tympanic membrane mobility is normal. No middle ear effusion. Nose: Nose normal. No mucosal edema, rhinorrhea, nasal deformity or septal deviation. Mouth/Throat: Uvula is midline, oropharynx is clear and moist and mucous membranes are normal. No oral lesions. Normal dentition. No uvula swelling or dental caries. No oropharyngeal exudate, posteriororopharyngeal edema or posterior oropharyngeal erythema. Normal EAC and TM w/ excellent mobility and no middle ear disease. fistula test negative, normal landmarks Eyes: Conjunctivae and EOM are normal. Pupils are equal, round, and reactive to light. Right eye exhibits no discharge. Left eye exhibits no discharge. Neck: Normal range of motion. Neck supple. No tracheal deviation present. No thyromegaly present. Lymphadenopathy: She has no cervical adenopathy. Neurological: She is alert and oriented to person, place, and time. No cranial nerve deficit. Coordination normal. Extraocular muscles are intact (CIII,IV, ) with smooth pursuit and no spontaneous or gaze evoked nystagmus. Corneal reflexes are intact bilaterally (CNV) Sharp sensation intact aqnd symmetric bilaterally in all trigeminal braches Masseter strength is equal and symmetrical (CN V) TMJ is non tender Facial Nerve Function is strong and symmetric (CN VII)House Brackmann Grade I/) Hitselberger Test - no hypaesthesia in either EAC (CNVII) Palate is midline and voice is strong (CN IX & X) Tongue is midline (CN XII) Shoulder elevation is strong and symmetrical (XI) Eyes Closed Rhomberg - sway Tandem Rhomberg - stable for <10 sec Tandem Gait - able to walk 5 ft with pivot and return with multiple minor errors Elmwood-Hallpike Position Right - No dizziness or Nystagmus Jim-Hallpike Position Left - No dizziness or Nystagmus Finger to pt's nose testing (self with eyes closed) is normal Finger to nose test (pt and examiner) - normal no dysmetria or past pointing Heel to Sykes - Normal bilaterally Rapid alternating movements - normal, no diadokokinesis Skin: Skin is warm and dry. Psychiatric: She has a normal mood and affect. Her behavior is normal. Judgment and thought content normal. The following audiological studies were reviewed by me: mild symmetrical SNHL (c/w age) The following vestibular studies were reviewed by me: CDP - multisensory pattern with relative mild overall impairment, VNG - NL claroics and DHP The following imaging studies were reviewed by me: Non contrast MRI - IAC' s NL (partial view) Assessment and Plan: Complex multifactorial dizziness. I do think that she has probably had BPPV in the past based on herhx, but her exam is neg x 3 today. I have described the BPPV diagnosis in detail to the patient withdiagrams including the pathophysiology and the effective treatment with a canalith repositioning ebony uver. This treatment will need to be done if and when the disease is active. I have provided them with instructions for a home based [facility] treatment and how to determine which side is causative. They will call our office if the symptoms return and do not resolve with this treatment. Other contributing factors in her case may be: 1) Migraines: I have explained to the patient that migraine induced vertigo may present with or without a headache at the time and may occur some years after more classic migraine headaches have abated. 2) cervicogenic: I have explained to cervical disease is a common cause of dizziness, especially dizziness that has a non-specific positional component. I have explained that the vestibular nuclei receive input from proprioceptive nerve fibers in the neck that relay somatosensory information. These symptoms can be caused by either chronic diseases of the neck (e.g. degenerative disk disease) or acuteinjury (e.g. whiplash injury). Often times these symptoms are aggravated by positional changes or head movement and may mimic BPPPV. The principle treatment of this condition generally involves physical therapy to improve the mobility of the neck and vestibular therapy. 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 I have also recommended a rehabilitation program combining local resources and monthly evaluations here at [facility] documented in this encounter Plan of Treatment Not on filedocumented as of this encounter Visit Diagnoses Diagnosis Dizziness and giddiness BPPV (benign paroxysmal positional verti go), unspecified laterality Abnormality of gait documented in this encounter Care Teams Cosmetician Apprentice Relationship Specialty Start Date End Date Tete Goins MD PCP - General 04/28/[address] [place] [address] documented as of this encounter
--- OUTSIDE RECORDS SUMMARY | 2022-06-02 00:51 | XMS_ITS | Encounter Summary ---
:1945 [place] [address] Care Team Providers Name Role Phone Tete Goins MD Primary Care Provider Encounter Details Date Type Department Care Team Description 02/12/2017 Ancillary Procedure Radiology Library at Jose Bowling [facility] [place] [address] OTOLARYNGOLOGY [phone] DEPT. [place], [place] [address] (Wo rk) Social History Tobacco Use Types Packs/Day Years Used Date Never Smoker Smokeless Tobacco: Never Used Sex Assigned at Date Recorded Not on file documented as of this encounter Plan of Treatment Not on filedocumented as of this encounter Procedures Procedure Name Priority Date/Time Associated Diagnosis Comme nts FILM LIBRARY Routine 02/12/2017 12:00 AM Results for this STORAGE ONLY MR EDT procedure ar e in [place] the results section. documented in this encounter Results Film Library- Storage Only MR [place] (02/12/2017 12:00 AM EDT) Specimen (Source) Anatomical Location Collection Method / Collectio n Time Received Time / Laterality Volume Narrative RAD - 11/01/2018 6:15 PM EST This exam is for storage only and is aut o-finalizing. Leonardo Bowling MD IMG FILM LIBRARY ORDERABLES Performing Organization Address City/State/ZIP Code Phon e Number DH RAD DH RAD [place], [place] documented in this encounter Visit Diagnoses Not on filedocumented in this encounter Care Teams Tsa Screener Relationship Specialty Start Date End Date Tete Goins MD PCP - General 04/28/[address] [place] [address] documented as of this encounter
--- OUTSIDE RECORDS SUMMARY | 2022-06-02 00:51 | XMS_ITS | Encounter Summary ---
:1945 Author Organization [facility] [place] [address] Care Team Providers Name Role Phone Tete Goins MD Primary Care Provider Encounter Details Date Type Department Care Team Description 03/16/2014 Orders Only Otolaryngology at [facility] Leonardo Bowling MD [facility] [address] OTOLARYNGOLOGY DEPT. [phone] [place], [place] [address] (Wo rk) Social History Tobacco Use Types Packs/Day Years Used Date Never Assessed Sex Assigned at Date Recorded Not on file documented as of this encounter Plan of Treatment Not on filedocumented as of this encounter Procedures Procedure Name Priority Date/Time Associated Diagnosis Comme nts FILM LIBRARY Routine 03/16/2014 2:59 PM Results f or this STORAGE ONLY MR EDT procedure ar e in [place] the results section. documented in this encounter Results Film Library- Storage only MR [place] (03/16/2014 2:59 PM EDT) Anatomical Region Laterality Modality Other Specimen (Source) Anatomical Collection Method Collection Time Re ceived Time Location / / Volume Laterality 03/16/2014 2:59 PM EDT Narrative 05/06/2015 3:05 PM EDT This is a Non-reportable exam Procedure Note KISHORE, UNSIGNED REPORT - 05/06/2015Formatt ing of this note might be different from the original. This is a Non-reportable exam Leonardo Bowling MD IM FILM LIBRARY ORDERABLES documented in this encounter Visit Diagnoses Not on filedocumented in this encounter Care Teams Security Monitor Relationship Specialty Start Date End Date Tete Goins MD PCP - General 04/28/[address] [place] [address] documented as of this encounter
--- OUTSIDE RECORDS SUMMARY | 2022-06-02 00:51 | XMS_ITS | Encounter Summary ---
:1945 Author Organization [facility] [place] [address] Care Team Providers Name Role Phone Tete Goins MD Primary Care Provider Reason for Visit Reason Comments Pseudophakia Encounter Details Date Type Department Care Team Description 09/19/2019 Office Visit Ophthalmology at [facility] Jim Oliva, PCO both eyes, (s/p YAG Caps ulotomy OU); [facility] Pseudophakilloyd, [place] [address] [place] [phone] [place], [place] [address] Social History Tobacco Use Types Packs/Day Years Used Date Never Smoker Smokeless Tobacco: Never Used Alcohol Use Standard Drinks/Week Comments Not Currently 0 (1 standard drink = 0.6 oz pure alcoho l) Sex Assigned at Date Recorded Not on file documented as of this encounter Progress Notes Jim Armstrong MD - 09/19/2019 3:00 PM EST PCO OU (OD>OS) S/p YAG Capsulotomy OS done on 08/22/2019 S/p YAG Capsulotomy OD done on 08/15/2019 [facility] and IOP doing well following procedure Judi is very happy with outcome of the right eye and would like to proceed with YAG Capsulotomy,left eye today. Pseudophakia OU (2017 Dr Martinez) Plan: Follow up with Dr Gilbert for annual eye care Back to me with any concerns documented in this encounter Plan of Treatment Not on filedocumented as of this encounter Visit Diagnoses Diagnosis PCO both eyes, (s/p YAG Capsulotomy OU) After-cataract, unspecified Pseudophakia, both eyes Lens replaced by other means documented in this encounter Care Teams Rug Dyer Helper Relationship Specialty Start Date End Date Tete Goins MD PCP - General 04/28/[address] [place] [address] documented as of this encounter
--- OUTSIDE RECORDS SUMMARY | 2022-06-02 00:51 | XMS_ITS | Encounter Summary ---
:1945 [place] [address] Care Team Providers Name Role Phone Tete Goins MD Primary Care Provider Encounter Details Date Type Department Care Team Description 04/28/2015 Procedure visit Audiology at [facility] Izabel Birch AUD [facility] [place] [address] AUDIOLOGY DEPT [phone] [place], [place] [address] (Wo rk) Social History Tobacco Use Types Packs/Day Years Used Date Never Smoker Smokeless Tobacco: Never Used Sex Assigned at Date Recorded Not on file documented as of this encounter Progress Notes Izabel Birch AUD - 04/28/2015 9:48 AM EDT AUDIOLOGY SECTION [place], [place] VIDEONYSTAGMOGRAPHY AND AUDIOLOGIC EVALUATION 04/28/2015 BACKGROUND Judi Jackson, age 69 y.o., was referred for the present testing as part of a comprehensive dizziness evaluation by Dr. Bowling, whom she is seeing later today. She was evaluated by Dr. Green [facility] Otolaryngology/ [facility] where she described two types of dizziness. The fist was episodes of vertigo when rolling over in bed. She was treated by PT for BPPV and now no longer has these symptoms. The second is more of a general imbalance/spinning in her head which can occur with or without movement, though mostly happens when she is walking. She had an MRI and CT. An audiogram from 03/02/15 indicated normal hearing sensitivity for both ears. 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 The hearing evaluation was not repeated today as Ms. Jackson did not suspect any changes in her hearing. VIDEONYSTAGMOGRAPHY (VNG) RESULTS: NORMAL Binocular horizontal and vertical recordings were obtained under infared oculography. Horizontal andvertical calibrations were normometric. There was no evidence of disconjugate eye movement. Perez was cooperative throughout the procedure. Pre-VNG Bedside Exam Neck range of motion appeared within gross normal limits. Eye movements were grossly intact; there was no spontaneous nystagmus evidenced in room light. The vertebrobasilar artery screening was negative. Tests of Ocular Control: NORMAL Tests of ocular control were normal. Normal saccade latency, velocity, and accuracy were observed. Smooth pursuit was essentially normal to the right and left. Optokinetic tracking (OPK) was normal andsymmetrical to the right and left at 20??/sec and 40??/sec. Nystagmus testing/Provoked vertigo testing: NORMAL No gaze, positional (supine, head right, head left) or spontaneous nystagmus was recorded. Hallpikes were negative for posterior and horizontal canals. Bithermal Caloric Testing: NORMAL Results of bithermal (air) caloric irrigations were as follows: Right ear, warm: 15??/second Right ear, cool: 26??/second Left ear,warm: 28??/second Left ear, cool: 12??/second Unilateral weakness: 2% to the left Directional preponderance: 32% to the left No failure of fixation suppression was noted. Ms. Jackson reported significant vertigo during caloric testing and requested that the irrigations bestopped. A full minute could not be completed on any of the irrigations. She also sat up during testing and goggles were removed. Eye movement could no longer be recorded. IMPRESSIONS: Normal VNG, however it should be noted that the normal caloric results may have been influenced by insufficient irrigation time/recording time. RECOMMENDATION Follow up with Dr. Bowling as scheduled. Continue with recommendations of PTVladislav Scott Clinical Residential Interior Designer [facility] [phone] documented in this encounter Plan of Treatment Not on filedocumented as of this encounter Visit Diagnoses Diagnosis Dizziness Dizziness and giddiness documented in this encounter Care Teams Filler Shredder Machine Relationship Specialty Start Date End Date Tete Goins MD PCP - General 04/28/[address] [place] [address] [address] [place] [address] documented as of this encounter
--- OUTSIDE RECORDS SUMMARY | 2022-06-02 00:51 | XMS_ITS | Encounter Summary ---
:1945 Author Organization [facility] [place] [address] Care Team Providers Name Role Phone Tete Goins MD Primary Care Provider Encounter Details Date Type Department Care Team Description 06/15/2015 Follow-Up Physical Therapy [place] [facility] [place] SYDNEY Larson; [facility] Leonardo Dewey MD [facility] [place] [address] [place] [address] Lisa Garg, PT [facility] PHYSICAL MEDICINE & [place] [address] Social History Tobacco Use Types Packs/Day Years Used Date Never Smoker Smokeless Tobacco: Never Used Sex Assigned at Date Recorded Not on file documented as of this encounter Progress Notes Lisa Garg, PT - 06/15/2015 8:00 AM EDT Images from the original note were not included. Physical Therapy Progress Note: Outpatient Date of [...] 9 10 04/28/15 05/04/15 05/24/15 05/31/15 06/15/15 Functional Limitations: Patient reports difficulty walking, reading, and is unable to perform several IADLs (driving, gardening, housework) secondary to imbalance Previous Level of Function: Independent, active S: Patient reports she is feeling better about her balance. Reports she has a headache and is fighting off a migraine. O: Therex: Neuromuscular Re-Ed (88683) 30 min Therex: Strength/Endurance/ROM (45369) 15 min Outcome Measures: Treatment Provided: ?? Treadmill walking with head turns x 5 minutes, 1.2 mph, 1% incline and UE support ?? Gait pattern: short step length initially, improved with verbal cues to increase step length ?? 1 flight of steps with 1 hand rail, step over step pattern ?? Patient reported feeling sensation that her head was floating when descending stairs, though not as bad as previously ?? MTEC: (L) 30 seconds (R) 30 seconds, increased postural sway with LLE anterior x 2 reps ?? Educated patient to progress exercise by moving anterior leg more forward. ?? VOR x2 - patient reported increased difficulty maintaining focus on target (added to HEP) ?? Flexibility: levator scapulae and upper trapezius stretched bilaterally (added to HEP) ?? Postural exercises: wall posture with chin tuck 10 second hold x 10 reps; patient reported feeling mild stretching sensation in posterior neck. (added to HEP) ?? Skilled discussion regarding return to walking program, as patient reported she has not been walking since the vertigo began. Encouraged patient to take a short walk outside on the sidewalk near [facility] before next PT session. Outcome measures: Functional Gait Assessment: (Last measured 04/28/15: ) Four Square Step Test Trial 1: 8.53 seconds Trial 2: 8.53 seconds Average time: 8.53 seconds Older Adults/ Geriatric: (John [employer] Esau, [...] 1. VOR x2 in standing 2. MTEC 3. Walking with head turns - diagonal 4. Tandem stance 5. 360 degree pivots 6. Sit to stands 7. Postural exercise: UT/LS stretch, wall posture Assessment: Pat demonstrated improved static balance today. She continues to ambulate with short step length, but was able to improve gait with verbal cueing. Educated patient to attempt short walk outside before next PT session. Pat continues to benefit from PT for [...] Timed Code Treatment: 45 minutes Lisa Garg, PT, DPT [facility] Outpatient Rehabilitation Department documented in this encounter Plan of Treatment Not on filedocumented as of this encounter Visit Diagnoses Diagnosis Imbalance Abnormality of gait Vertigo Dizziness and giddiness documented in this encounter Care Teams Warehouse Engineer Relationship Specialty Start Date End Date Tete Goins MD PCP - General 04/28/[address] [place] [address] documented as of this encounter
--- OUTSIDE RECORDS SUMMARY | 2022-06-02 00:51 | XMS_ITS | Encounter Summary ---
:1945 Author Organization [facility] [place] [address] Care Team Providers Name Role Phone Gianna Rios MD Primary Care Provider Reason for Visit Reason Onset Date Comments Results 05/13/2014 [email or web address] Encounter Details Date Type Department Care Team Description 05/13/2014 Telephone Cardiology at José Reyes Jr., Results Francisco SORENSEN ([email or web address]) [address] Rayshawn A RAYSHAWN A [place], [place] [address] [phone] Social History Tobacco Use Types Packs/Day Years Used Date Never Assessed Sex Assigned at Date Recorded Not on file documented as of this encounter Miscellaneous Notes Telephone Encounter - José Reyes Jr., MD - 05/14/2014 2:22 PM EDT holter entered documented in this encounter Plan of Treatment Not on filedocumented as of this encounter Procedures Procedure Name Priority Date/Time Associated Diagnosis Comme nts HOLTER MONITOR 24 HOUR Routine 05/14/2014 Resul ts for this procedure are i n the results section . documented in this encounter Results Holter Monitor 24hr (05/14/2014) Anatomical Region Laterality Modality Other Narrative 05/14/2014 Judi Manuel ?: 1945 PCP: GIANNA RIOS MD ??Ordering: Lucila tay Holter Report- [facility], [address] [facility] [address] Date of application: 05/12/2014 ?Date of Scan: 05/13/2014 ? Date of Interpretation: 05/14/2014 Indication: CVA Baseline Rhythm: NSR Symptoms: log kept- no symptoms Report: Minimum HR: 64 Average HR: 77 Maximum HR: 113 Ventricular- VPC: 158 Couplets: 0 VT: 0 Atrial- APC: 17 Couplets: 0 SVT: 0 Summary: ?No symptoms, NSR throughou t, appropriate heart rates, rare APC and VPC, no higher grade ectopy Electronically signed: José Reyes Jr, MD FACC Historical Provider CARDIAC SERVICES ORDERABLES documented in this encounter Visit Diagnoses Not on filedocumented in this encounter Care Teams Sales Expert Relationship Specialty Start Date End Date Gianna Rios MD PCP - General 08/23/10 06/22/14 [address] [place] [address] documented as of this encounter
--- OUTSIDE RECORDS SUMMARY | 2022-06-02 00:51 | XMS_ITS | Encounter Summary ---
:1945 Author Organization [facility] Address [address] [place] [address] Care Team Providers Name Role Phone Tete Goins MD Primary Care Provider Encounter Details Date Type Department Care Team Description 08/22/2019 Procedure visit Ophthalmology at [facility] Jim Oliva, PCO (posterior [facility] MD capsular [facility] opacification), [place] [address] [phone] [place] [address] Social History Tobacco Use Types Packs/Day Years [...] Name Priority Date/Time Associated Diagnosis Comme nts CAPSULOTOMY-YAG Routine 08/22/2019 3:45 PM PCO (posterior Resu lts for this LASER - OS - LEFT EST capsular procedure are in EYE opacification), left the res ults section. documented in this encounter Results Capsulotomy-YAG Laser - OS - Left Eye (08/22/2019 3:45 PM EST) Anatomical Region Laterality Modality Other Specimen (Source) Anatomical Location Collection Method / Collectio n Time Received Time / Laterality Volume Narrative 08/22/2019 3:45 PM EST Anesthesia Anesthesia medications included Proparac vamsi, Phenylephrine HCL 2.5%, Tropicamide 1%. Laser Information Total spots was 19. The energy was 38.0 mj. Post-op The patient tolerated the procedure well . There were no complications. Notes Procedure: Yag Capsulotomy ??left eye Diagnosis: Opacified posterior lens caps ule Location of procedure: 4B eye clinic Surgeon: Jim Armstrong Preprocedure drops: 1 drop of each alcai ne, 0.5% iopidine, Pred forte Indication: The patient is status post c ataract surgery in the operative eye and developed posterior capsular opa city limiting their vision and producing glare. ??The decision was made to try to improve their vision with YAG capsulotomy. ??We discussed the risks, benefits and alternatives to this treatment, answered Judi's q uestions and she signed the consent form. Procedure: ??The patient was taken to [facility] laser room. ??A YAG capsulotomy was performed. ??The patient tolerated t he procedure well and there were no problems observed during the procedure. Spot number: 19 Total energy:38 millijoules Post operative instructions: ??Continue all current eye drops. They are scheduled for follow up within 2 to 3 we eks, but are to call in with any problems, particularly flashes, floaters , pain, decreased vision or photophobia. Caution with driving Upon Return to Eye Clinic: IOP OU MR in eye status post YAG Jim Armstrong MD OPHTHALMOLOGY SERVICES ORDER [place] documented in this encounter Visit Diagnoses Diagnosis PCO (posterior capsular opacification), left After-cataract, unspecified documented in this encounter Care Teams Home Care Provider Relationship Specialty Start Date End Date Tete Goins MD PCP - General 04/28/[address] [place] [address] documented as of this encounter
--- OUTSIDE RECORDS SUMMARY | 2022-06-02 00:51 | XMS_ITS | Encounter Summary ---
:1945 Author Organization [facility] [place] [address] Care Team Providers Name Role Phone Tete Goins MD Primary Care Provider Encounter Details Date Type Department Care Team Description 05/31/2015 Follow-Up Physical Therapy at [facility] [place] Lisa Garg, PT Imbalance; [facility] [place] [address] PHYSICAL MEDICINE & [phone] [place] [address] Social History Tobacco Use Types Packs/Day Years Used Date Never Smoker Smokeless Tobacco: Never Used Sex Assigned at Date Recorded Not on file documented as of this encounter Progress Notes Lisa Garg, PT - 05/31/2015 1:48 PM EDT Physical Therapy Progress Note: Outpatient [...] 8 9 10 04/28/15 05/04/15 05/24/15 05/31/15 Functional Limitations: Patient reports difficulty walking, reading, and is unable to perform several IADLs (driving, gardening, housework) secondary to imbalance Previous Level of Function: Independent, active S: Patient reports she is feeling like her symptoms have gotten better. O: Therex: Neuromuscular Re-Ed (66478) 45 min Treatment Provided: ?? Treadmill walking with head turns x 5 minutes, 0.7 mph ?? Head turns 30, 40 seconds with 30 second break in between secondary to onset of dizziness ?? Head tilts 60 seconds ?? 1 flight of steps with 1 hand rail, step over step pattern ?? Patient reported feeling sensation that her head was bouncing up and down when descending stairs ?? Sit to stands on 2 foam 2x10 reps (added to HEP) ?? Patient reported leg fatigue, mild knee valgus noted as patient fatigued ?? Cone pick ups with emphasis on bending knees ?? Reviewed HEP ?? Walking with head turns ?? Diagonal x 2 reps, no deviation ?? MTEO on 2 foam with cone reaches ?? Tandem stance (L) 30 seconds (R) 30 seconds, mild postural sway ankle strategy ?? Romberg EC - 30 sec ?? MTEC: (L) 30 seconds (R) 30 seconds, increased postural sway with LLE anterior (added to HEP) ?? Stepping forward and backward 2x10 reps, no LOB noted ?? Stepping to targets forward and laterally, no LOB noted ?? Skilled discussion provided regarding body mechanics when bending forward, as patient tends to lock her knees, which creates excessive anterior translation of her head. Improved mechanics with practice retrieving cones from the floor with increased knee bend. Outcome measures: None this session Home Exercise Program: Pt was provided with written instruction, educated regarding and practiced the following exercises: 1. VOR x1 in sitting 2. MTEC 3. Walking with head turns - diagonal 4. Tandem stance 5. 360 degree pivots 6. Sit to stands Assessment: Pat continues to make steady gains in therapy, demonstrating improvement in both static and dynamic balance today. Was able to progress HEP to provide continued vestibular challenge. Patient continues to benefit from PT for [...] Treatment: 45 minutes neuro re-ed (3) Lisa Garg, PT, DPT [facility] Outpatient Rehabilitation Department documented in this encounter Plan of Treatment Not on filedocumented as of this encounter Visit Diagnoses Diagnosis Imbalance Abnormality of gait Vertigo Dizziness and giddiness documented in this encounter Care Teams Applied Technologist Relationship Specialty Start Date End Date Tete Goins MD PCP - General 04/28/[address] [place] [address] documented as of this encounter
--- OUTSIDE RECORDS SUMMARY | 2022-06-02 00:51 | XMS_ITS | Encounter Summary ---
:1945 Author Organization [facility] [place] [address] Care Team Providers Name Role Phone Tete Goins MD Primary Care Provider Encounter Details Date Type Department Care Team Description 05/04/2015 Follow-Up Physical Therapy at [facility], DR SYDNEY Larson; [facility] Leonardo Dewey MD [facility] [place] [address] [place] [address] Lisa Garg, PT [facility] PHYSICAL MEDICINE & [place] [address] Social History Tobacco Use Types Packs/Day Years Used Date Never Smoker Smokeless Tobacco: Never Used Sex Assigned at Date Recorded Not on file documented as of this encounter Progress Notes Lisa Garg, PT - 05/04/2015 1:07 PM EDT Images from the original note were [...] 6 7 8 9 10 04/28/15 05/04/15 Functional Limitations: Patient reports difficulty walking, reading, and is unable to perform several IADLs (driving, gardening, housework) secondary to imbalance Previous Level of Function: Independent, active S: Patient reports she is feeling all right, has not noticed much change in her symptoms. Was unableto perform exercises since evaluation, as patient had a in the family and has been very busy. O: Therex: Neuromuscular Re-Ed (21684) 45 min Treatment Provided: ?? Reviewed HEP ?? VOR x1 - good performance, double image after 10 seconds of head movement, unchanged with slowingspeed. Educated patient to rest and allow symptoms to return to baseline before beginning again. ?? Romberg EC 30 seconds x 3 reps: increased postural sway, ankle strategy ?? Feet apart EC on 2 foam: 3 x30 seconds, mildly increased postural sway, ankle strategy ?? Feet together EC on 2 foam: 3x30 seconds, moderate increase in postural sway, patient working much harder to maintain balance per subjective report. ?? Walking with head turns - horizontal x 4 reps (added to HEP) ?? Mild to moderate pathway deviations, improved with subsequent practice ?? Tandem stance (L) 8 seconds (R) 23 seconds (added to HEP) ?? SLS (L) 7, 21 seconds (R) 20, 30 seconds ?? 360 degree pivots: (L) 1.21 seconds with (+) dizziness; (R) 1.07 seconds ?? Patient had decrease in symptoms with repeated pivots (added to HEP) Outcome measures: Home Exercise Program: Pt was provided with written instruction, educated regarding and practiced the following exercises: 1. VOR x1 in sitting 2. Romberg EC 3. Walking with head turns - horizontal 4. Tandem stance 5. 360 degree pivots Assessment: Pat demonstrated good motor learning with repeated trials of various balance activities today. Also noted to have decreased symptoms with repeated stimuli during 360 degree turns, may benefit from additional habituation exercises. Patient continues to benefit from PT for static and dynamicbalance challenges, gait activities, and vestibular therex. ST [...] neuro re-ed (3) Lisa Garg, PT, DPT [facility] Outpatient Rehabilitation Department documented in this encounter Plan of Treatment Not on filedocumented as of this encounter Visit Diagnoses Diagnosis Imbalance Abnormality of gait Vertigo Dizziness and giddiness documented in this encounter Care Teams Company Accountant Relationship Specialty Start Date End Date Tete Goins MD PCP - General 04/28/[address] [place] [address] documented as of this encounter
--- OUTSIDE RECORDS SUMMARY | 2022-06-02 00:51 | XMS_ITS | Encounter Summary ---
:1945 Author Organization [facility] [place] [address] Care Team Providers Name Role Phone Tete Goins MD Primary Care Provider Encounter Details Date Type Department Care Team Description 06/22/2015 Follow-Up Physical Therapy at [facility] Lisa Garg, PT Imbalance; [facility] [place] [address] PHYSICAL MEDICINE & [phone] [place] [address] Social History Tobacco Use Types Packs/Day Years Used Date Never Smoker Smokeless Tobacco: Never Used Sex Assigned at Date Recorded Not on file documented as of this encounter Progress Notes Lisa Garg, PT - 06/22/2015 8:40 AM EDT Images from the original note were not included. Physical Therapy Progress Note: Outpatient Date of Exam/First treatment: 04/28/2015 Date of Onset October 2013 Referring Provider: Leonardo Bowling MD Diagnosis: 1. Imbalance 2. Vertigo Medicare Cert Period: 04/28/2015 - 06/22/15 G-Code: Mobility Status Modifier CURRENT CJ - [...] 10 04/28/15 05/04/15 05/24/15 05/31/15 06/15/15 06/22/15 Functional Limitations: Patient reports difficulty walking, reading, and is unable to perform several IADLs (driving, gardening, housework) secondary to imbalance Previous Level of Function: Independent, active S: Patient reports she has started walking outside on the sidewalk in her neighborhood, and has beenable to complete 10 minutes. Sometimes feels like her head is still moving after she stops walking and takes around 5 minutes to return to normal. O: Therex: Neuromuscular Re-Ed (93473) 45 min Outcome Measures: Computerized Dynamic Posturography (CDP) (please see scanned documents): 1. Sensory Organization Testing: Condition 1 (eyes open, stable surface, stable reference): Below normal x3 Condition 2 (eyes closed, stable surface, stable reference): WNL Condition 3 (eyes open, sway reference): WNL Condition 4 (eyes open, sway surface): Below normal x3 Condition 5 (eyes closed, sway surface): WNL Condition 6 (eyes open, sway surface, sway reference): WNL Composite score 75/100; below normal visual average 2. Motor Control: Backward Translation: WNL Forward Translation: WNL Treatment Provided: ?? VOR x2 - patient able to maintain focus on target without blurring/doubling ?? Walking with head turns - no pathway deviation ?? Walking with diagonals - mild pathway deviation ?? Balance board with head turns 3x30 seconds, mild instability initially but patient was able to maintain balance without UE support Outcome measures: Dizziness Handicap Inventory (Last measured 04/28/15, 80/100) Home Exercise Program: Pt was provided with written instruction, educated regarding and practiced the following exercises: 1. VOR x2 in standing 2. MTEC 3. Walking with head turns - diagonal 4. Tandem stance 5. 360 degree pivots 6. Sit to stands 7. Postural exercise: UT/LS stretch, wall posture Assessment: Violette continues to make improvement in dynamic balance and has been able to increase her activity level. Self reported dysfunction related to dizziness has decreased from severe to moderate. She has made good progress toward therapy goals and remains diligent in performance of HEP. Violette continues to benefit from PT for static and dynamic balance challenges, gait activities, and vestibular therex. ST Goals: 05/26/15 (4 weeks) - extended [...] Total Timed Code Treatment: 45 minutes Lisa Garg PT, DPT [facility] Outpatient Rehabilitation Department documented in this encounter Plan of Treatment Not on filedocumented as of this encounter Visit Diagnoses Diagnosis Imbalance Abnormality of gait Vertigo Dizziness and giddiness documented in this encounter Care Teams Pediatric Medical Assistant Relationship Specialty Start Date End Date Tete Goins MD PCP - General 04/28/[address] [place] [address] documented as of this encounter
--- OUTSIDE RECORDS SUMMARY | 2022-06-02 00:51 | XMS_ITS | Encounter Summary ---
:1945 Author Organization [facility] [place] [address] Care Team Providers Name Role Phone Tete Goins MD Primary Care Provider Reason for Visit Reason Comments Blurred Vision Consultation (Routine) - Closed Specialty Diagnoses / Procedures Referred By Contact Refer red To Contact Ophthalmology Diagnoses yag ou Adina Gilbert, OD Jim Armstrong MD [address] [place] [address] DR [address] [place] [address] [place] [id number] Referral ID Status Reason Start Date Expiration Date Visits V isits Requested Authorized [id number] Closed Consult, 08/05/2019 08/04/2020 1 1 Test & Treat Encounter Details Date Type Department Care Team Description 08/15/2019 Office Visit Ophthalmology at [facility] Jim Oliva, PCO (posterior capsular opac ification), bilateral; [facility] Pseudophakia, [place] [address] [place] [address] [place], [place] [address] Social History Tobacco Use Types Packs/Day Years Used Date Never Smoker Smokeless Tobacco: Never Used Alcohol Use Standard Drinks/Week Comments Not Currently 0 (1 standard drink = 0.6 oz pure alcoho l) Sex Assigned at Date Recorded Not on file documented as of this encounter Progress Notes Jim Armstrong MD - 08/15/2019 1:15 PM EST 1. 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 Pseudophakia OU (2017 Dr Martinez) Plan: Proceed with YAG Capsulotomy OD today Possible OS to follow - will decide in clinic as scheduled for 08/22/2019 Return to clinic: 08/22/2019 as scheduled for possible YAG OS documented in this encounter Plan of Treatment Not on filedocumented as of this encounter Visit Diagnoses Diagnosis PCO (posterior capsular opacification), bilateral After-cataract, unspecified Pseudophakia, both eyes Lens replaced by other means documented in this encounter Care Teams Electrodynamicist Relationship Specialty Start Date End Date Tete Goins MD PCP - General 04/28/[address] [place] [address] documented as of this encounter
--- OUTSIDE RECORDS SUMMARY | 2022-06-02 00:51 | XMS_ITS | Encounter Summary ---
:1945 Author Organization [place] [address] Care Team Providers Name Role Phone Tete Goins MD Primary Care Provider Encounter Details Date Type Department Care Team Description 03/16/2014 Orders Only Otolaryngology at [facility] Leonardo Bowling MD [facility] [place] [address] OTOLARYNGOLOGY DEPT. [phone] [place], [place] [address] (Wo rk) Social History Tobacco Use Types Packs/Day Years Used Date Never Assessed Sex Assigned at Date Recorded Not on file documented as of this encounter Plan of Treatment Not on filedocumented as of this encounter Visit Diagnoses Not on filedocumented in this encounter Care Teams Service Counter Cashier Relationship Specialty Start Date End Date Tete Goins MD PCP - General 04/28/[address] [place], [place] [address] documented as of this encounter
--- OUTSIDE RECORDS SUMMARY | 2022-06-02 00:51 | XMS_ITS | Encounter Summary ---
:1945 Author Organization [facility] [place] [address] Care Team Providers Name Role Phone Tete Goins MD Primary Care Provider Encounter Details Date Type Department Care Team Description 03/31/2014 Orders Only Otolaryngology at [facility] Leonardo Bowling MD [facility] [place] [address] OTOLARYNGOLOGY DEPT. [phone] [place], [place] [address] (Wo rk) Social History Tobacco Use Types Packs/Day Years Used Date Never Assessed Sex Assigned at Date Recorded Not on file documented as of this encounter Plan of Treatment Not on filedocumented as of this encounter Procedures Procedure Name Priority Date/Time Associated Comments Diagnosis FILM LIBRARY STORAGE Routine 03/31/2014 3:54 PM R esults for this ONLY ULTRASOUND EDT procedure ar e in STUDY the results section. documented in this encounter Results Film Library- Storage only Ultrasound Study (03/31/2014 3:54 PM EDT) Anatomical Region Laterality Modality Other Specimen (Source) Anatomical Collection Method Collection Time Re ceived Time Location / / Volume Laterality 03/31/2014 3:54 PM EDT Narrative 05/06/2015 3:59 PM EDT This is a Non-reportable exam Procedure Note KISHORE, UNSIGNED REPORT - 05/06/2015Formatt ing of this note might be different from the original. This is a Non-reportable exam Leonardo Bowling MD IM FILM LIBRARY ORDERABLES documented in this encounter Visit Diagnoses Not on filedocumented in this encounter Care Teams Meat Scrubber Relationship Specialty Start Date End Date Tete Goins MD PCP - General 04/28/[address] [place] [address] documented as of this encounter
--- OUTSIDE RECORDS SUMMARY | 2022-06-02 00:51 | XMS_ITS | Encounter Summary ---
:1945 Author Organization [facility] [address] Care Team Providers Name Role Phone Tete Goins MD Primary Care Provider Encounter Details Date Type Department Care Team Description 07/15/2015 Office Visit Physical Therapy at [facility] Lisa Garg, PT Imbalance; [facility] [place] [address] PHYSICAL MEDICINE & [phone] [place] [address] Social History Tobacco Use Types Packs/Day Years Used Date Never Smoker Smokeless Tobacco: Never Used Sex Assigned at Date Recorded Not on file documented as of this encounter Progress Notes Lisa Garg, PT - 07/15/2015 12:54 PM EDT Images from the original note were not included. Physical Therapy Progress Note: Outpatient Date of Exam/First treatment: 04/28/2015 Date of Onset October 2013 Referring Provider: Leonardo Bowling MD Diagnosis: 1. Imbalance 2. Vertigo Medicare Cert Period: 04/28/2015 - 06/22/15, 06/23/15 - 08/18/15 G-Code: Mobility Status Modifier CURRENT CI - At least 1 percent but less than 20 percent impaired, limited or restricted PROJECTED CI - At least 1 percent but less than 20 percent impaired, limited or restricted DISCHARGE CI - At least 1 percent but less than 20 percent impaired, limited or restricted G Code Rationale: This G-Code and these [...] 04/28/15 05/04/15 05/24/15 05/31/15 06/15/15 06/22/15 07/01/15 07/08/15 07/15/15 Functional Limitations: Patient reports difficulty walking, reading, and is unable to perform several IADLs (driving, gardening, housework) secondary to imbalance Previous Level of Function: Independent, active S: Patient reports she has been doing the exercises at home and is feeling ready to transition to home program. Feels that her symptoms have been getting better and she doesn't notice them very often. O: Therex: Neuromuscular Re-Ed (17343) 45 min Treatment Provided: ?? Treadmill walking x 6 minutes at 1.3 mph, 1% grade with head turns, tilts and diagonals ?? MTEC compliant (L) 30 sec (R) 30 sec, ankle and hip strategies -> tandem? ?? Tandem stance compliant EC: (L) 30 sec (R) 30 sec ?? Sit to stands with EC ?? Tandem walking - 30 ft ?? Added head turns (added to HEP) ?? EC (added to HEP) ?? Retro tandem walking - 20 ft, no imbalance noted. ?? SLS - EO: (L) 30 seconds (R) 30 seconds EC: (L) 4 seconds (R) 4 seconds (added to HEP) ?? Skilled discussion regarding how to progress exercises for home and to contact therapist with anyquestions regarding HEP. Outcome measures: FGA: Last measured 06/15/15 DHI: Last measured 06/22/15: 40/100 Home Exercise Program: Pt was provided with written instruction, educated regarding and practiced the following exercises: 1. VOR x2 in standing 2. MTEC compliant 3. Walking with head turns - diagonal 4. Tandem stance 5. 360 degree pivots - discontinued 6. Sit to stands - EC 7. Postural exercise: UT/LS/SCM stretches, wall posture with theraband ER 8. Tandem walking - forward, with head turns, backward, with eyes closed 9. SLS eyes closed Assessment: Pat has progressed very well in therapy and demonstrated significant improvement in dynamic balance today, improving to 29/30 on the FGA. Subjective symptoms have decreased to the mild category. Pat demonstrates excellent adherence to HEP, and is ready to transition to home program. Educated patient to contact therapist with any questions regarding HEP or change in status. ST Goals: 05/26/15 (4 weeks) - extended to 07/26/15 1. Independent with home exercise program. MET 2. DVA without blurring or doubling of [...] in balance and decreased risk for falls MET 07/15/15 Plan: Discharge from skilled PT Informed Consent: The patient understands and agrees to the physical therapy treatment plan and goals. Total Treatment time: 45 minutes Total Timed Code Treatment: 45 minutes Lisa Garg PT, DPT [facility] Outpatient Rehabilitation Department documented in this encounter Plan of Treatment Not on filedocumented as of this encounter Visit Diagnoses Diagnosis Imbalance Abnormality of gait Vertigo Dizziness and giddiness documented in this encounter Care Teams Client Support Consultant Relationship Specialty Start Date End Date Tete Goins MD PCP - General 04/28/[address] [place] [address] documented as of this encounter
--- OUTSIDE RECORDS SUMMARY | 2022-06-02 00:54 | XMS_ITS | Encounter Summary ---
:1945 Author Organization [facility] Address [address] [place] [address] Care Team Providers Name Role Phone Gianna Luna MD Primary Care Provider Encounter Details Date Type Department Care Team Description 11/13/2002 Results Only [facility] - Db Garza MD Maple conversion [address] [place], [place] [address] [place] [id number] [phone] Social History Tobacco Use Types Packs/Day Years Used Date Never Assessed Sex Assigned at Date Recorded Not on file documented as of this encounter Plan of Treatment Not on filedocumented as of this encounter Procedures Procedure Name Priority Date/Time Associated Diagnosis Comme [facility] SURGICAL PATHOLOGY Routine 11/13/2002 0:00 EST Re sults for this procedure are i n the results section. documented in this encounter Results SURGICAL PATHOLOGY (11/13/2002 0:00 EST) Pathology Report: SURGICAL PATHOLOGY REPORT [facility] Reports generated via electronic interface contain inessa ginal data; LAB however they are lacking the format of the original re port. Caution should be taken when reading/interpreting unfo rmatted reports. Name: ? JUDI PALMA ? Accession #: ? [id number] ? : ? 1945 (Age: 57) ??F ? Collect Date: ? 11/13/2002 ? Location: ? [facility] ? Receive Date: ? 003 ? Provider: DB GARZA MD Copy to: GIANNA KYLE MD ? Final Pathologic Diagnosis: ? Colon, rectum, biopsy: 1. ?Polypoid colorectal mucosa with lymph oid aggregate. 2. ?No evidence of hyperplastic kedar yp or adenoma. ??See comment. Comment: ? Deeper sections of the specimen have been exami harvey. ??(Dr. Keyes)/[facility] Document reviewed and electronically signed by: Ruthy Espinoza MD Report ??Date: 11/18/2002 16:49 By the signature above, the attending physician certif ies that he/she has personally conducted a gross and/or microscopic examin ation of the described specimens and rendered or confirmed the above diagnosi s. Specimen(s) Received: ? Rectal biopsy Clinical History: ? Screening Gross Description: ? Received in Hollande' s fixative labelled Manuel and rectal biopsy are two cobos soft tissue biopsies, 0. 2 x 0.2 x 0.1 cm and 0.3 x 0.3 x 0.2 cm. ??Entirely submitted in one cassette. ??(Neil Vazquez)/edr End of Report Specimen Performing Organization Address City/State/ZIP Code Phon e Number [facility] [address] [place] [address] SERVICES [facility] [address] [place] [address] documented in this encounter Visit Diagnoses Not on filedocumented in this encounter Care Teams Clip Bolter And Wrapper Relationship Specialty Start Date End Date Gianna Luna MD PCP - General 12/14/[address] [place] [address] documented as of this encounter
--- OUTSIDE RECORDS SUMMARY | 2022-06-02 00:54 | XMS_ITS | Encounter Summary ---
:[address] [facility] Address [address] [place] [address] Care Team Providers Name Role Phone Gianna Luna MD Primary Care Provider Encounter Details Date Type Department Care Team Description 07/02/2000 Results Only [facility] Hughes ENGINE RESEARCH ENGINEER conversion [address] [place] [address] Social History Tobacco Use Types Packs/Day Years Used Date Never Assessed Sex Assigned at Date Recorded Not on file documented as of this encounter Plan of Treatment Not on filedocumented as of this encounter Procedures Procedure Name Priority Date/Time Associated Diagnosis Comme nts CYTOPATHOLOGY Routine 07/02/2000 0:00 EDT Results for this procedure are i n the results section . documented in this encounter Results CYTOPATHOLOGY (07/02/2000 0:00 EDT) Pathology Report: CYTOPATHOLOGY REPORT [facility] Reports generated via electronic interface contain inessa ginal data; however they are lacking the format of the original re port. Caution should be taken when reading/interpreting unfo rmatted reports. Name: ? JUDI PALMA ? Accession #: ? [id number] : ? 1945 (Age: 55) ??F ?Collect Date: ? 11/1999 Location: ? [facility] ? Receive Date : ? 07/03/2000 Provider: ?MICHELLE SMITH ENGINE RESEARCH ENGINEER Copy to: ? Specimen/Source: ?ThinPrep Pap Test, Cervix/ Endocervix Last Menstrual Period: ? 1995 Hormonal/Contraceptive Status: ? Premarin: Vaginal cream ? SPECIMEN ADEQUACY ? Satisfactory for evaluation. GENERAL CATEGORIZATION ? Within Normal Limits ? Document reviewed and electronically signed by: ? CARLOS Ramos(ASCP) ? Report Date: ??07/05/2000 08:27 End of Report Specimen Performing Organization Address City/State/ZIP Code Phon e Number [facility] [address] [place] [address] SERVICES [facility] [address] [place] [address] documented in this encounter Visit Diagnoses Not on filedocumented in this encounter Care Teams Tank Worker Relationship Specialty Start Date End Date Gianna Luna MD PCP - General 12/14/09 [address] [place], [place] [id number] documented as of this encounter
--- OUTSIDE RECORDS SUMMARY | 2022-06-02 00:54 | XMS_ITS | Clinical Summary ---
:1945 Author Organization [facility] Address [address] [place] [address] Care Team Providers Name Role Phone Gianna Luna MD Primary Care Provider Social History Tobacco Use Types Packs/Day Years Used Date Never Assessed Sex Assigned at Date Recorded Not on file Plan of Treatment Health Maintenance Due Date Last Done Comments Hepatitis C Screen 1945 COVID-19 Vaccine (1) 1951 Fall Risk Screening 2011 Insurance Payer Benefit Plan / Subscriber ID Effective Phone Address T ype Group Dates MEDICARE MEDICARE A/B [id number] 2011-Pres [address] edicare GL ent [id number] [place] [address] [facility] [id number] 2020-Pres [address] [employer] [place] [id number] COMPANY Judi Jackson Personal/Family Self [address] [facility] (Home) [facility] [phone] [employer] (Work) [phone] Judi Jackson Personal/Family Self [address] [facility] (Home) [facility] [phone] [employer] (Work) [phone] Judi Jackson Personal/Family Self [address] [facility] (Home) [facility] [phone] [employer] (Work) [phone] Judi Jackson Personal/Family Self [address] [facility] (Home) [facility] [phone] [employer] [place] (Work) [phone] Care Teams Solar Field Service Technician Relationship Specialty Start Date End Date Gianna Luna MD PCP - General 12/14/09 [address] [place] [address]
--- OUTSIDE RECORDS SUMMARY | 2022-06-02 00:54 | XMS_ITS | Encounter Summary ---
:1945 Author Organization [facility] Address [address] [place] [address] Care Team Providers Name Role Phone Gianna Luna MD Primary Care Provider Encounter Details Date Type Department Care Team Description 08/09/2015 Hospital Encounter [facility]- Yarelis Unknown, Provider, [facility] 0 [facility] [phone] [place] [address] (Work) [phone] Social History Tobacco Use Types Packs/Day Years Used Date Never Assessed Sex Assigned at Date Recorded Not on file documented as of this encounter Discharge Disposition Disposition Code Departure Means Destination Home or Self Correction documented in this encounter Plan of Treatment Not on filedocumented as of this encounter Visit Diagnoses Not on filedocumented in this encounter Care Teams Rack Production Worker Relationship Specialty Start Date End Date Gianna Luna MD PCP - General 12/14/[address] [place] [address] [phone] documented as of this encounter
--- OUTSIDE RECORDS SUMMARY | 2022-06-02 00:54 | XMS_ITS | Encounter Summary ---
:1945 Author Organization [facility] Address [address] [place] [address] Care Team Providers Name Role Phone Gianna Luna MD Primary Care Provider Encounter Details Date Type Department Care Team Description 02/04/2021 Lab Requisition [facility] for Pathology & M, DO screening for Laboratory Medicine - [address] ma lignant neoplasm of [place] [facility] [address] colon [address] [place] [phone] Social History Tobacco Use Types Packs/Day Years Used Date Never Assessed Sex Assigned at Date Recorded Not on file documented as of this encounter Plan of Treatment Not on filedocumented as of this encounter Procedures Procedure Name Priority Date/Time Associated Diagnosis Comme nts SURGICAL PATHOLOGY Today 02/04/2021 12:54 Encounter for Resu lts for this EDT screening for procedure are in malignant neoplasm the resul ts of colon section. documented in this encounter Results SURGICAL PATHOLOGY (02/04/2021 12:54 EDT) Final Diagnosis A. COLON, 80 CMS, POLYP, BIOPSY: [facility] - Sessile serrated adenoma. [facility] LAB[facility] SERVICES Attestation By the signature [facility] Electronica lly below, the attending CENTER signed by Bob Lugo, physician certifies LABORATORY Lelia Mcneill MD on that they have 1) SERVICES 02/07/2021 at 1224 personally conducted a gross and/or microscopic examination of the described specimen(s), and/or personally interpreted the results of laboratory testing of the described specimen(s), and 2) personally rendered or confirmed the above diagnosis. Clinical History Colon cancer [facility] screening; family CENTER history of colon LABORATORY cancer SERVICES Gross Description A. [facility] Received in formalin sole d with proper patient identification (initials R, P) and polyp @ 80 cm is an aggregate of cobos polypoid tissue fragments (0.6 x 0.5 x 0.1 cm). The specimen is submitted entirely in A1. [facility] TYRA PINTO(ASC) 02/05/2021 11:14 SER VICES Performing Lab [facility] Scanned Images [facility] Specimen Tissue - Entire colon (body structure) Performing Organization Address City/State/ZIP Code Phon e Number [facility] [address] [place] [address] SERVICES documented in this encounter Visit Diagnoses Diagnosis Encounter for screening for malignant ne oplasm of colon Special screening for malignant neoplasm s, colon documented in this encounter Care Teams Senior Facilities Manager Relationship Specialty Start Date End Date Gianna Luna MD PCP - General 12/14/09 [address] [place], [place] [phone] documented as of this encounter
--- OUTSIDE RECORDS SUMMARY | 2022-06-02 00:54 | XMS_ITS | Encounter Summary ---
:1945 Author Organization [facility] Address [address] [place] [address] Care Team Providers Name Role Phone Gianna Rios MD Primary Care Provider Encounter Details Date Type Department Care Team Description 12/23/2012 Results Only [facility] Alisha Rios MD Laboratory Services - [facility] [address] [place] [address] [address] [place] [address] [phone] Social History Tobacco Use Types Packs/Day Years Used Date Never Assessed Sex Assigned at Date Recorded Not on file documented as of this encounter Plan of Treatment Not on filedocumented as of this encounter Procedures Procedure Name Priority Date/Time Associated Diagnosis Comme nts PAP TEST- RESULT Routine 12/23/2012 0:00 EDT Resu lts for this ONLY procedure are i n the results section. documented in this encounter Results PAP TEST- RESULT ONLY (12/23/2012 0:00 EDT) Pathology Report: CYTOPATHOLOGY REPORT [facility] Reports generated via electronic interface contain inessa ginal data; however they are lacking the format of the original re port. Caution should be taken when reading/interpreting unfo rmatted reports. Name: ? JUDI PALMA ? Accession #: ? [id number] ? : ? 1945 (Age: 67) ??F ?Collect Da te: ? 12/23/2012 ? Location: ? [facility] ? Receive Date: ? 013 ? Provider: GIANNA RIOS MD Copy to: ? Final Report SPECIMEN ADEQUACY ? Satisfactory for Evaluation - transformation zone component present GENERAL CATEGORIZATION ? Negative for Intraepithelial Lesion or Malignan cy ?? Menstrual/ Status: ??Post Menopausal Previous Gynecologic Pathology: HPV: + 2002 Specimen/Source: ??Pap Test, Cervix/Endocervix, ThinPr ep Imaging System with manual evaluation Document reviewed and electronically signed by: ? Sammie Dawkins, CT(ASCP)(IAC) ? Report ??Date: 12/30/2012 14:19 HPV with Pap Test ? Date Ordered: ? 12/27/2012 ? Status: ?? Signed Out ?Date Complete: ? 01/01/2013 ? By: ??S ystem Interface ? Date Reported: ? 01/01/2013 ? Interpretation RESULT: Negative for HPV. No E6 or E7 mRNA is detected from HPV types 16,18,31,3 3,35, 39,45,51,52,56,58,59,66, and 68 by director of mechanical engineering media lilliam amplification. Comments Document reviewed and electronically signed by: ? System Interface ? Report date: 01/01/2013 By the signature above, the attending physician certif ies that he/she has personally conducted a gross and/or microscopic examin ation of the described specimens and rendered or confirmed the above diagnosi s. End of Report Specimen Performing Organization Address City/State/ZIP Code Phon e Number [facility] [address] [place] [phone] SERVICES [facility] [address] [place] [address] documented in this encounter Visit Diagnoses Not on filedocumented in this encounter Care Teams Geophysical Laboratory Chief Relationship Specialty Start Date End Date Gianna Rios MD PCP - General 12/14/09 [address] [place], [place] [phone] documented as of this encounter
--- OUTSIDE RECORDS SUMMARY | 2022-06-02 00:54 | XMS_ITS | Encounter Summary ---
:1945 Author Organization [facility] Address [address] [place] [address] Care Team Providers Name Role Phone Gianna Luna MD Primary Care Provider Encounter Details Date Type Department Care Team Description 01/11/2021 Lab Requisition [facility] Outr Resulting Lab, Pathology & Laboratory Provider [facility] [address] [place], [place] [phone] Social History Tobacco Use Types Packs/Day Years Used Date Never Assessed Sex Assigned at Date Recorded Not on file documented as of this encounter Plan of Treatment Not on filedocumented as of this encounter Procedures Procedure Name Priority Date/Time Associated Diagnosis Comme nts COVID-19 TEST [facility] Today 01/11/2021 8:34 EDT LAB PCR COVID-19 TESTING Routine 01/11/2021 8:34 EDT Resu lts for this procedure are i n the results section. documented in this encounter Results COVID-19 TEST [facility] LAB PCR (01/11/2021 8:34 EDT) Specimen Swab - Entire nasopharynx (body structur e) Performing Organization Address City/State/ZIP Code Phon e Number [facility] [address] [place] [address] SERVICES COVID-19 TESTING (01/11/2021 8:34 EDT) COVID-19 rt-PCR Negative Negative [facility] Result Comment: [facility]ENTER LAB[facility]ORY This test has not been FDA c leared or approved. This test has been authorized by FDA under an EUA for use by authorized laboratories. This test has been authorized only for detection of nucleic acid fro SERVICES m 2019-nCo, not for any oth er viruses or pathogens. This test is only authorized for the duration of the declaration that circumstances exist justifying the authorization of emergency use of in vitro d iagnostic tests for detectio n and/or diagnosis of 2019-nCoV under section 564(b)(1) of Act, 21 U.S.C ?? 360bbb-3(b) (1), unless the authorization is terminated or revoked sooner. Negative results do not prec lude 2019-nCoV infection and should not be used as the sole basis for treatment or other patient management decisions. Negative results must be combined with clinical observa tions, patient history, and epidemiological informatio n. Testing was performed using the sesar SARS-CoV-2 assay ([employer] on the Sesar 6800 System Performing Lab [address] [facility] Lab [facility] SERVICES Specimen Swab Performing Organization Address City/State/ZIP Code Phon e Number [facility] [address] [place] [address] SERVICES documented in this encounter Visit Diagnoses Not on filedocumented in this encounter Care Teams Handle Machine Operator Relationship Specialty Start Date End Date Gianna Luna MD PCP - General 12/14/09 [address] [place], [place] [phone] documented as of this encounter
--- OUTSIDE RECORDS SUMMARY | 2022-06-02 00:54 | XMS_ITS | Encounter Summary ---
:1945 Author Organization [facility] Address [address] [place] [address] Care Team Providers Name Role Phone Unavailable Primary Care Provider Unavailable Encounter Details Date Type Department Care Team Description 09/20/2009 Orders Only [facility] Alisha Luna MD Laboratory Services - [facility] [address] [address] 0 [facility] [place] [address] [phone] Social History Tobacco Use Types Packs/Day Years Used Date Never Assessed Sex Assigned at Date Recorded Not on file documented as of this encounter Plan of Treatment Not on filedocumented as of this encounter Procedures Procedure Name Priority Date/Time Associated Comments Diagnosis HPV DETECTION, HIGH Routine 09/20/2009 9:21 Resul ts for this RISK TYPES EST procedure are i n the results section. CYTOPATHOLOGY Routine 09/20/2009 0:00 Results for this EST procedure are i n the results section. documented in this encounter Results HUMAN PAPILLOMA VIRUS DNA TEST (09/20/2009 9:21 EST) Specimen Description Cervix, ThinPrep [facility] vial Result Negative for HPV [facility] types 16, 18, 31, 33, 35, 39, 45, 51, 52, 56, 58, 59, and 68. Report Status Final [facility] 09/30/2009 Specimen Performing Organization Address City/State/ZIP Code Phon e Number [facility] [address] [place] [address] SERVICES [facility] [address] [place] [address] CYTOPATHOLOGY (09/20/2009 0:00 EST) Pathology Report: CYTOPATHOLOGY REPORT ? [facility] ? LAB Reports generated via electr onic interface contain original data; ? however they are lacking the format of the original report. ? Caution should be taken when reading/interpreting unformatted reports. ? Name: ? LOUIE, JUDI ? Accession #: ? [id number] ? : ? 1945 (Age: 64) ??F ?Collect Date: ? 09/20/2009 ? Location: ? [facility] ? Receive Date: ? 09/22/2009 ? Provider: ?MARGARET GRES SER MD ? Copy to: ? Specimen/Source: ? Pap Test, Cervix/Endocervix, ThinPrep Imaging System ? with manual evaluation ? 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 Previous Gynecologic Patholo gy: ? ASC-US: 2003 ? Other: ? Additional clinical informat ion: HPV neg ? HPVDX - HPV testing requeste d regardless of diagnosis on current ThinPrep Pap ?? test. ? SPECIMEN ADEQUACY ? Satisfactory for Eval uation ? - transformation zone compon ent present ? GENERAL CATEGORIZATION ? Negative for Intraepi thelial Lesion or Malignancy ? Document reviewed and electr onically signed by: ? Lynan Kimani, CT(ASCP) ? Report Date: ??12/28/ 2009 15:34 ? End of Report ? Specimen Performing Organization Address City/State/ZIP Code Phon e Number [facility] [address] [place] [address] SERVICES [facility] [address] [place] [address] documented in this encounter Visit Diagnoses Not on filedocumented in this encounter
--- OUTSIDE RECORDS SUMMARY | 2022-06-02 00:54 | XMS_ITS | Encounter Summary ---
:1945 Author Organization [facility] Address [address] [place] [address] Care Team Providers Name Role Phone Unavailable Primary Care Provider Unavailable Encounter Details Date Type Department Care Team Description 12/10/2009 Results Only [facility] Luís Wheeler , Laboratory Services - [address] ALLYN [address]EDO [address] [place] [address] [place] [address] [phone] Social History Tobacco Use Types Packs/Day Years Used Date Never Assessed Sex Assigned at Date Recorded Not on file documented as of this encounter Plan of Treatment Not on filedocumented as of this encounter Procedures Procedure Name Priority Date/Time Associated Diagnosis Comme [facility] SURGICAL PATHOLOGY Routine 12/10/2009 0:00 EST Re sults for this procedure are i n the results section. documented in this encounter Results SURGICAL PATHOLOGY (12/10/2009 0:00 EST) Pathology Report: SURGICAL PATHOLOGY REPORT ? [facility] Reports generated via Flux interface contain original data; ? LAB however they are lacking the format of the original report. ? Caution should be taken when reading/interpreting unformatted reports. ? Name: ? LOUIE, JUDI ? Accession #: ? [id number] ? : ? 1945 (Age: 64) ??F ? Collec t Date: ? 12/10/2009 ? Location: ? [facility] ? R eceive Date: ? 12/10/2009 ? Provider: LUÍS WALKER SON DO ? Copy to: MARGARET RIOS MD ? Final Pathologic Diagnosis: ? Colon, 80 cm, polyp, biopsy: ? - Colonic mucosa with surfac e hyperplastic changes. ??See comment. ? Comment: ? Deeper levels have be en examined and no adenomatous mucosa is identified. ?? (Dr. Hawthorne)/mms ? Document reviewed and electr onically signed by: ? Lamont Thornton MD ? Report ??Date: 12/14/2009 11 :58 ? By the signature above, the attending physician certifies that he/she has ? personally conducted a gross and/or microscopic examination of the described ? specimens and rendered or co nfirmed the above diagnosis. ? Specimen(s) Received: ? Polyp at 80 cm ? Clinical History: ? Family hx; hx polyp; sister recent dx colon CA ? Gross Description: ? Received in [place] labelled Louie, Judi and polyp at 80 cm are ?? three cobos-pink soft tissues ranging from 0.1 x 0.1 x 0.1 cm to 0.2 x 0.2 x 0.2 ?? cm. ??The specimens are subm itted entirely in one cassette. ??(Juju Estevez/fransico ? End of Report ? Specimen Performing Organization Address City/State/ZIP Code Phon e Number [facility] [address] [place] [address] SERVICES [facility] [address] [place] [address] documented in this encounter Visit Diagnoses Not on filedocumented in this encounter
--- OUTSIDE RECORDS SUMMARY | 2022-06-02 00:54 | XMS_ITS | Encounter Summary ---
:1945 Author Organization [facility] Address [address] [place] [address] Care Team Providers Name Role Phone Gianna Luna MD Primary Care Provider Encounter Details Date Type Department Care Team Description 08/09/2015 Results Only [facility]- [facility]ISM Luís Garza, DO [facility] [address] [place] [address] (Wo rk) Social History Tobacco Use Types Packs/Day Years Used Date Never Assessed Sex Assigned at Date Recorded Not on file documented as of this encounter Plan of Treatment Not on filedocumented as of this encounter Procedures Procedure Name Priority Date/Time Associated Diagnosis Comme [facility] SURGICAL PATHOLOGY Routine 08/09/2015 9:36 EST Re sults for this procedure are i n the results section. documented in this encounter Results SURGICAL PATHOLOGY (08/09/2015 9:36 EST) Pathology Report: SURGICAL PATHOLOGY REPORT [facility] Reports generated via electronic interface contain inessa ginal data; LABORATORY however they are lacking the format of the original re port. SERVICES Caution should be taken when reading/interpreting unfo rmatted reports. Name: ? JUDI PALMA ? Accession #: ? [id number] ? : ? 1945 (Age: [age]) ??F ? Collect Date: ? 08/09/2015 ? Location: ? [facility] ? Receive Date: ? 015 ? Provider: LUÍS GARZA DO Copy to: LEIGH HAMMOND MD ? Final Pathologic Diagnosis: RECTUM, POLYP, BIOPSY: - ??Hyperplastic polyp (1); no adenoma. Document reviewed and electronically signed by: Ruthy Espinoza MD Report ??Date: 08/11/2015 09:53 By the signature above, the attending physician certif ies that he/she has personally conducted a gross and/or microscopic examin ation of the described specimens and rendered or confirmed the above diagnosi s. Specimen(s) Received: Rectal polyp Clinical History: Family hx of colon Ca Gross Description: ? Received in formalin labelled with proper patient identification (initials R, P) and rectal polyp is a single pin k-cobos tissue fragment (0.4 x 0.2 x 0.1 cm). Submitted intact in 1. Wilmer Torsten 08/10/2015 11:02 AM End of Report Specimen Performing Organization Address City/State/ZIP Code Phon e Number [facility] [address] [place] [phone] SERVICES documented in this encounter Visit Diagnoses Not on filedocumented in this encounter Care Teams [employer] Drawing Operator Relationship Specialty Start Date End Date Gianna Luna MD PCP - General 12/14/09 [address] [place], [place] [phone] documented as of this encounter
--- NOTE | 2022-06-02 07:45 | DI.MAMMO_ITS ---
Exam(s) MAMMO SCREENING EXAM: MAMMO SCREENING CLINICAL HISTORY: screening, Z12.39 TECHNIQUE: Mammograms were interpreted according to the usual protocol including computer analysis w [employer] CAD system, tomosynthesis and C-view imaging. COMPARISON: FINDINGS: The breasts are of moderate density with fairly symmetrical distribution of fibroglandular tissue. N o dominant mass or clumped microcalcification is identified in either breast. The current examinatio n is compared with previous examinations including May 2021 and there has been no gross interval c hange in appearance in comparison with the prior studies. IMPRESSION: No specific evidence of malignancy at this time. Routine screening examinations are suggested at yea rly intervals in this age group according to the ACS ACR guidelines. BI-RADS Category 1 - Negative Breast Density - Category B - Scattered areas of fibroglandular density
== END ==
PROVIDERS: PCP Family Medicine; Visit Provider Family Medicine
DX: Z12.31 Encounter for screening mammogram for malignant neoplasm of breast (principal)
CPT/HCPCS: 77063; 77067

== ENCOUNTER 2023-05-24 04:16 | Outpatient (CLI) | payer MEDICARE, SELFPAY ==
[2023-05-24 10:46] LABS: ALT 34 U/L (14-59); AST 23 U/L (15-37); Albumin 3.8 g/dL (3.4-5.0); Alkaline Phosphatase 74 U/L (46-116); Anion Gap 4.6 mmol/L (3-11); BUN 21 mg/dL (7-18); Bilirubin, Total 0.4 mg/dL (0.2-1.0); CO2 30.4 mmol/L (21.0-32.0); CREATININE 0.7 mg/dL (0.55-1.02); Calcium 9.1 mg/dL (8.5-10.1); Chloride 101 mmol/L (98-107); Estimated GFR 89.02 (mL/min/1.73m2); Glucose 91 mg/dL (74-106); Potassium 4.1 mmol/L (3.5-5.1); Sodium 136 mmol/L (136-145); Total Protein 7.2 g/dL (6.4-8.2)
[2023-05-24 10:56] LABS: Hemoglobin A1C 5.8 % (<5.7)
== END 2023-05-24 04:17 | disposition home or self-care (01) ==
LOC: LBO 04:17
PROVIDERS: PCP Family Medicine; Visit Provider Family Medicine
DX: R73.03 Prediabetes (principal); E78.5 Hyperlipidemia, unspecified; I10 Essential (primary) hypertension
CPT/HCPCS: 36415; 80053; 83036

== ENCOUNTER 2023-12-27 15:38 | Emergency (ER) | payer MEDICARE, SELFPAY ==
[2023-12-27] VITALS (12 sets, daily range): BP systolic 170–184; BP diastolic 81–95; PULSE 83–95; RESP 14–22; TEMP 36.7; O2SAT 96–98
--- NOTE | 2023-12-27 15:30 | RT.EKG_ITS ---
APPROVED REPORT Exam: Resting ECG Reason for Exam: Weakness, Dizziness Patient Location: E HR:88 bpm ECG Measurements Heart Rate [address] 161 P 23 QRSd 97 QRS -26 QT 369 T 87 QTc 447 Conclusion Sinus rhythm...normal P axis, V-rate 60- 99 Probable left atrial enlargement...P >50mS, <-0.10mV V1 Low voltage, precordial leads...precordial leads <1.0mV Consider anterior infarct...Q >30mS in V2-V5
--- NOTE | 2023-12-27 15:45 | DI.RAD_ITS ---
Exam(s) XR CHEST 2V PA LATERAL EXAM: XR CHEST 2V PA LATERAL CLINICAL HISTORY: weakness TECHNIQUE: 2D digital imaging was performed. Two views. COMPARISON: No exams were available for comparison FINDINGS: HEART: Normal size. Aorta: Not dilated. PULMONARY VASCULATURE: Normal. LUNGS: Clear. PLEURAL SPACE: No pleural effusion or pneumothorax. BONE:Unremarkable for age. Soft tissues: Unremarkable. IMPRESSION: No acute abnormality. DATA REPOSITORY: RADIATION DOSE DELIVERED:
--- NOTE | 2023-12-27 15:59 | ED.GENADUL_ITS ---
Discharge Plan Disposition Patient Disposition: Home Condition: Stable Discharge Details Clinical Impression: Light-headed feeling Primary Care Provider: Tete Goins ED Provider: Mercedes Ellis Home Meds and New Rx's Prescriptions: New metoclopramide HCl [Reglan] 5 mg tablet 5 mg PO Q8H PRN PRNQty: 12 0RF Rx Instructions: administer 30 minutes before meals Continued albuterol sulfate 90 mcg/actuation HFA aerosol inhaler 2 puff inhalation Q8H PRN (Reason: bronchospasm) Qty: 6.7 4RF omeprazole 20 mg capsule,delayed release(DR/EC) 20 mg PO DAILY Qty: 90 3RF rosuvastatin [Crestor] 5 mg tablet 5 mg PO Q48H Qty: 45 10RF diazepam 2 mg tablet 2 mg PO QID PRN (Reason: anxiety) Qty: 10 0RF aspirin [Adult Low Dose Aspirin] 81 mg tablet,delayed release (DR/EC) 81 mg PO DAILY Qty: 1 0RF multivitamin [Once Daily] 1 EACH tablet 1 ea PO DAILY calcium carbonate 500 MG tablet 500 mg PO DAILY omega-3 fatty acids-fish oil 1 EACH capsule 1 ea PO DAILY budesonide-formoterol [Symbicort] 80-4.5 mcg/actuation HFA aerosol inhaler 2 puff inhalation BID Qty: 30.6 4RF fluticasone propion-salmeterol [Advair HFA] 115-21 mcg/actuation HFA aerosol inhaler 2 puff inhalation BID Qty: 12 12RF Rx Instructions: in place of symbicort Discharge Instructions Additional Instructions: Take Reglan as needed for nausea and vomiting Follow-up with your doctor tomorrow You may benefit from an outpatient Holter monitor at your PCPs discretion Make sure you are drinking at least eight 8 ounce glasses of water daily Make sure you are eating 3 regular meals and snacks Return earlier should you have new or worsening complaints Referrals: Tete Goins MD, [place] [Primary Care Provider] - HPI General Date/Time Provider Initiated Documentation: 12/27/23 15:44 . HPI Narrative: This 78-year-old female presents with report lightheadedness intermittently for the past 3 weeks, worse today. Denies any chest pain or shortness of breath. States that she felt fine this morning and then began progressively more lightheaded throughout the day, bent over after getting some enrike jeffery from the refrigerator and was having trouble walking as she felt like she might pass out. She denies any chest pain or palpitations. She denies any new medications. Denies any recent upper respiratory symptoms or illnesses. Denies any additional complaints at this time. Denies history of similar symptoms in the past. Denies any speech or sensation change. Denies any headache, calf pain or swelling, weakness or focal changes in sensation Related Data Home Medications Medication Instructions Recorded Confirmed calcium carbonate 500 mg calcium 500 mg PO DAILY 12/20/12 06/21/23 (1,250 mg) tablet multivitamin (Once Daily tablet) 1 ea PO DAILY 12/20/12 06/21/23 omega-3 fatty acids-fish oil 300 1 ea PO DAILY 12/20/12 06/21/23 mg-1,000 mg capsule aspirin 81 mg tablet,delayed 81 mg PO DAILY #1 tab 04/29/20 06/21/23 release (Adult Low Dose Aspirin) budesonide-formoterol HFA 80 2 puff inhalation BID #30.6 grams 01/31/23 06/21/23 mcg-4.5 mcg/actuation aerosol inhaler (Symbicort) albuterol sulfate 90 mcg/actuation 2 puff inhalation Q8H PRN 06/21/23 06/21/23 aerosol inhaler bronchospasm #6.7 grams diazepam 2 mg tablet 2 mg PO QID PRN anxiety #10 06/21/23 06/21/23 tab-caps omeprazole 20 mg capsule,delayed 20 mg PO DAILY #90 caps 06/21/23 06/21/23 release rosuvastatin 5 mg tablet (Crestor) 5 mg PO Q48H #45 tab-caps 06/21/23 06/21/23 fluticasone propionate 115 2 puff inhalation BID #12 grams 11/28/23 mcg-salmeterol 21 mcg/actuation HFA inhaler (Advair HFA) metoclopramide HCl 5 mg tablet 5 mg PO Q8H PRN PRN #12 tabs 12/27/23 (Reglan) Previous Rx's Medication Instructions Recorded aspirin 81 mg tablet,delayed 81 mg PO DAILY #1 tab 04/29/20 release (Adult Low Dose Aspirin) budesonide-formoterol HFA 80 2 puff inhalation BID #30.6 grams 01/31/23 mcg-4.5 mcg/actuation aerosol inhaler (Symbicort) albuterol sulfate 90 mcg/actuation 2 puff inhalation Q8H PRN 06/21/23 aerosol inhaler bronchospasm #6.7 grams diazepam 2 mg tablet 2 mg PO QID PRN anxiety #10 06/21/23 tab-caps omeprazole 20 mg capsule,delayed 20 mg PO DAILY #90 caps 06/21/23 release rosuvastatin 5 mg tablet (Crestor) 5 mg PO Q48H #45 tab-caps 06/21/23 fluticasone propionate 115 2 puff inhalation BID #12 grams 11/28/23 mcg-salmeterol 21 mcg/actuation HFA inhaler (Advair HFA) metoclopramide HCl 5 mg tablet 5 mg PO Q8H PRN PRN #12 tabs 12/27/23 (Reglan) Allergies Allergy/AdvReac Type Severity Reaction Status Date / Time latex Allergy Intermediate Skin Rash Verified 12/27/23 15:42 as a child Sulfa (Sulfonamide Allergy Intermediate Hives Verified 12/27/23 15:42 Antibiotics) atorvastatin AdvReac Intermediate abdominal Verified 12/27/23 15:42 upset General Stated Complaint: GenMedical CHERYL: 3 Course Vital Signs Vital signs: Vital Signs Temperature 36.7 C 12/27/23 15:33 Pulse 91 H 12/27/23 15:33 Respiratory Rate 20 12/27/23 15:33 Blood Pressure 184/82 H 12/27/23 15:33 Pulse Oximetry 97 12/27/23 15:33 Temperature 36.7 C 12/27/23 15:33 Pulse 91 H 12/27/23 15:33 Respiratory Rate 20 12/27/23 15:33 Blood Pressure 184/82 H 12/27/23 15:33 Pulse Oximetry 97 12/27/23 15:33 Oxygen Delivery Method Room Air 12/27/23 15:33 Oxygen Flow Rate 0 12/27/23 15:33 Medical Decision Making 78-year-old female presenting with lightheadedness and generalized weakness, nonfocal neurological exam, alert and oriented x 4, cranial nerves II through XII intact, ambulatory with steady gait, orthostatics negative, pupils equal round reactive to light and accommodation, negative [id number], negative [id number]-pejj, negative pronator drift, urinalysis evidence of infection, diagnostic labs within normal limits Lungs clear to auscultation, cardiac rate rhythm regular Low suspicion clinically for TIA or CVA, reports significant improvement in symptoms after fluids and Reglan Given Reglan for home Patient is alert and oriented, no acute distress, ambulatory steady gait, mild hypertension, encouraged to follow-up with primary care physician Blood pressure rechecked in the outpatient setting recommended Patient may benefit from outpatient Holter monitor or event monitor at the discretion with her doctor Negative troponin, EKG without acute abnormality Return precautions reviewed and patient expressed understanding Quality:SDOH Health Related Social Needs: No Data to Display PFSH All Active Problems (Updated 12/27/23 @ 17:30 by TYRA Champagne) Light-headed feeling (Acute) Prediabetes (Acute) Serrated adenoma of colon (Acute ~01/2021) Balance disorder (Acute 04/22/15) Family history of colon cancer (Acute) Hyperlipidemia (Acute 12/23/12) TIA (transient ischemic attack) (Acute 02/13/17) 02/11/17-LEFT LACUNAR INFARCT BY MRI Abnormal MRI (Acute 03/16/14) lacunar infarct - frontal lobe H/O: CVA (cerebrovascular accident) (Acute) Hypertension (Chronic) Cough (Acute) Medical History (Updated 12/27/23 @ 17:30 by TYRA Champagne) Cataract of both eyes (12/17/17) Mucous polyp of cervix (08/30/04) Surgical History (Updated 02/09/21 @ 13:16 by Penelope Allen RN) History of colonoscopy with polypectomy (~02/04/21) Hx of eye surgery post-cataract exctraction needed surgery for blurry eyes History of arthroscopy of knee Extraction of cataract 12/31/17 (R) DR. RENEE 01/14/18 (L) DR. RENEE Arthroplasty of knee (~2007) Family History (Updated 06/21/23 @ 14:46 by Jeri East) Mother , 94 Essential hypertension Hyperlipidemia Stroke Dementia Hypertension Father , 69 Heart disease ANGINA Colon cancer Sister Stroke Colon cancer Brother , 78 Heart disease Colon cancer Cancer Maternal Grandfather , 82 Essential hypertension CHF (congestive heart failure) Heart disease Paternal Grandfather No problems noted. Maternal Grandmother , 80 Diabetes Stroke Paternal Grandmother No problems noted. Sister Depression Fibromyalgia Brother Diabetes Essential hypertension Heart disease PACEMAKER Hyperlipidemia Son Essential hypertension Heart disease Daughter Gestational diabetes Diabetes Colon cancer Other Family history of colon cancer Social History (Updated 06/21/23 @ 15:02 by Jeri East) Smoking/Tobacco Use Status: Never Second Hand Exposure: Yes Smoking risk assessment performed?: Yes Alcohol Intake: former Drug use: Never Substance use type: does not use Counseling given: No Counseling provided: none Caregiver/Support person: No Household members: spouse Housing: house Communication Needs: Corrective Lenses Do you need help understanding health information?: Never Pets and animals: No Sexually active: Yes Do you think of yourself as: straight/heterosexual Current gender identity: female What is your relationship status?: How often do you talk on the phone with friends or family?: twice per week How often do you get together with friends or relatives?: once per week How often do you attend orthodox or anabaptist services?: 4 or more times per year Do you belong to any clubs or organized social groups?: no Panel score (0-1 are the most socially isolated patients): 3 What type of physical activity do you participate in: walking Duration: 15-30 minutes/day Frequency: 5-6 times per week Rosa/Pentecostal: Adventist Special rosa needs: No Agree to transfusion: Yes Seatbelt use: always Drive intox or ride w/intox escort car driver: No Do you feel safe at home: Yes Do you feel safe in your relationship?: Yes
[2023-12-27 16:10] LABS: Abs Immature Grans 0.05 10^3/uL (0.0-0.06); Absolute Basophil Count 0.06 10^3/uL (0.0-0.2); Absolute Eosinophil Count 0.23 10^3/uL (0.0-0.7); Absolute Lymphocyte Count 3.69 10^3/uL (1.2-3.4); Absolute Monocyte Count 0.69 10^3/uL (0.1-0.8); Basophils % 0.6; Eosinophils % 2.4; HCT 40.2 % (36.0-46.0); HGB 13.6 g/dL (11.2-15.7); Immature Grans % 0.5; MCH 31.1 pg (27.0-33.0); MCHC 33.8 % (32.0-36.0); MCV 92 fL (80-95); MPV 8.8 fL (8.0-11.0); Monocytes % 7.1; Neutrophils % 51.4; Platelet Count 366 10^3/uL (130-400); RBC 4.38 10^6/uL (3.93-5.22); RDW 12.3 % (11.7-14.6); RDW-SD 41.7 fL; WBC 9.72 10^3/uL (4.4-10.8)
[2023-12-27 16:31] LABS: Troponin I < 50 ng/L (< or =60)
[2023-12-27 16:32] LABS: ALT 34 U/L (14-59); AST 22 U/L (15-37); Albumin 3.8 g/dL (3.4-5.0); Alkaline Phosphatase 81 U/L (46-116); Anion Gap 8.3 mmol/L (3-11); BUN 14 mg/dL (7-18); Bilirubin, Total 0.3 mg/dL (0.2-1.0); CO2 30.7 mmol/L (21.0-32.0); CREATININE 0.8 mg/dL (0.55-1.02); Calcium 8.8 mg/dL (8.5-10.1); Chloride 101 mmol/L (98-107); Estimated GFR 75.84 (mL/min/1.73m2); Glucose 152 mg/dL (74-106); Magnesium 2.2 mg/dL (1.8-2.4); Potassium 3.5 mmol/L (3.5-5.1); Sodium 140 mmol/L (136-145); TSH (W/Ref FT4) 1.81 uIU/mL (0.36-3.74); Total Protein 7.5 g/dL (6.4-8.2)
[2023-12-27 17:02] LABS: Bilirubin Negative (Negative); Blood Trace-intact (Negative); Clarity Clear (Clear); Glucose Negative (Negative); Ketones Negative (Negative); Leukocyte Esterase Small (Negative); Nitrite Negative (Negative); Specific Gravity 1.015 (1.005-1.025); Urobilinogen 0.2 mg/dL (Up to 0.2)
[2023-12-27 17:13] LABS: Bacteria Rare HPF (Negative); C & S Indicated? No; Crystals Moderate Amorphous HPF (Negative); Epithelial Cells Rare HPF (Negative); Mucus Negative (Negative); Other Cells Rare Transitional (Negative); RBC 0-2 HPF (0-2); WBC 0-2 HPF (0-5)
[2023-12-27] MEDS: Normal Saline 1,000 ML 1000 ML IV (17:46)
[2023-12-27] MEDS: Metoclopramide 10 MG/2 ML VIAL 5 MG IVP (17:46)
== END 2023-12-27 17:46 | disposition home or self-care (01) ==
PROVIDERS: Emergency Provider Physician Assistant; PCP Family Medicine
DX: R53.1 Weakness (principal); R42 Dizziness and giddiness; E78.00 Pure hypercholesterolemia, unspecified; Z86.73 Personal history of transient ischemic attack (TIA), and cerebral infarction without residual deficits; Z79.82 Long term (current) use of aspirin
CPT/HCPCS: 80053; 93005; 96361; 96374; 99284; 71046; 81003; 81015; 83735; 84443; 84484; 85025; 93010; J2765

== ENCOUNTER 2024-01-14 06:06 | Outpatient (CLI) | payer MEDICARE, SELFPAY ==
[2024-01-14] MEDS: Levalbuterol HFA 15 GM INH 4 PUFF IH (13:49)
[2024-01-14] MEDS: Inhaler, Assist Device 1 EACH MC (13:50)
--- NOTE | 2024-01-15 10:31 | W.PFT ---
Date of service: 01/14/24 Time of Service: 13:05 Pulmonary Function Test Result Indications: Chronic cough Interpretation Spirometry: There is no airflow limitation. Bronchodilator response not completed as after 1 puff levalbuterol patient became dizzy and taken to the ER. Lung Volumes: Normal lung volumes Airway Pressure: Normal airways resistance Impression Normal pulmonary function testing. Bronchodilator response and DLCO not completed (see above and RT notes) Clinical Correlation therefore is recommended.
== END 2024-01-14 06:07 | disposition home or self-care (01) ==
LOC: RT 06:06
PROVIDERS: PCP Family Medicine; Visit Provider Family Medicine
DX: R05.9 Cough, unspecified (principal)
CPT/HCPCS: 94010; 94726

== ENCOUNTER 2024-01-14 13:42 | Emergency (ER) | payer MEDICARE, SELFPAY ==
[2024-01-14 14:00] VITALS: BP 174/90; PULSE 86; RESP 16; TEMP 36.7; O2SAT 99
[2024-01-14 14:26] VITALS: RESP 16
--- NOTE | 2024-01-14 14:45 | DI.CT_ITS ---
Exam(s) CT HEAD WO EXAM: CT HEAD WO CLINICAL HISTORY: headaches and dizziness. TECHNIQUE: Imaging Protocol: Axial computed tomography images with coronal and sagittal reformatted images were created and reviewed COMPARISON: CT HEAD AND SINUS WO from 03/03/2018 FINDINGS: Ventricles and Extra axial spaces: Normal in size and morphology for the patient's age. Hemorrhage: None. Cerebral parenchyma: No evidence of acute infarct or mass. Midline shift: None. Brainstem/Cerebellum: Normal. Calvarium: Normal. Visualized Paranasal sinuses:Clear. Mastoids: Clear. Soft Tissues: Unremarkable. ORBITS: Unremarkable. PITUITARY: Not enlarged. IMPRESSION: No acute intracranial process. RADIATION DOSE DELIVERED: 722.31mGy.cm Total DLP DATA REPOSITORY: All CT scans at this facility are submitted to the National Radiology Data Registry (NRDR) Dose Index Registry (DIR) with the [employer] ([employer]). RADIATION OPTIMIZATION: All CT scans at this facility use at least one of these dose optimization te chniques: automated exposure control; mA and/or kV adjustment per patient size (includes targeted exa ms where dose is matched to clinical indication); or iterative reconstruction.
--- NOTE | 2024-01-14 14:45 | DI.CT_ITS ---
Exam(s) CT CHEST PE CTA EXAM: CT CHEST PE CTA CLINICAL HISTORY: dyspnea, ?PE. TECHNIQUE: Imaging Protocol: Axial CT angiography was performed with multi-slice acquisition and mu lti-planar reconstructions as well as axial, coronal and sagittal MIP reconstructions. CONTRAST MATERIAL: Intravenous: Omnipaque 350 Contrast volume:100 ml COMPARISON: CR XR CHEST 2V PA LATERAL from 12/27/2023 FINDINGS: Pulmonary Arteries: No evidence of filling defect to suggest pulmonary emboli. Tracheobronchial tree: No mucous plugging. Mediastinum and Nidhi: No dominant adenopathy or fluid collection. Pulmonary parenchyma: Limited evaluation due to expiratory changes. No consolidation or dominant jon surable mass. Pleura: No effusion or pneumothorax. Heart: The heart is not dilated. No coronary artery calcifications are seen. Aorta: Ascending aorta measures 3.7 cm. No dissection. Upper abdomen: No acute findings. Bones: Unremarkable for age. Tubes, Catheters, and Lines: None Soft tissues: Unremarkable. IMPRESSION: No evidence of pulmonary embolism. No acute pulmonary abnormality. RADIATION DOSE DELIVERED: 433.6mGy.cm Total DLP DATA REPOSITORY: All CT scans at this facility are submitted to the National Radiology Data Registry (NRDR) Dose Index Registry (DIR) with the [employer] (ACR). RADIATION OPTIMIZATION: All CT scans at this facility use at least one of these dose optimization te chniques: automated exposure control; mA and/or kV adjustment per patient size (includes targeted exa ms where dose is matched to clinical indication); or iterative reconstruction.
--- NOTE | 2024-01-14 14:45 | RT.EKG_ITS ---
APPROVED REPORT Exam: Resting ECG Reason for Exam: lightheaded Patient Location: E HR:78 bpm ECG Measurements Heart Rate 78 AXIS NE 167 P 52 QRSd 92 QRS -13 QT 384 T 85 QTc 438 Conclusion Incomplete analysis due to missing data in precordial lead(s) Sinus rhythm...normal P axis, V-rate 60- 99
--- NOTE | 2024-01-14 14:51 | W.ED.GENAD ---
Discharge Plan Disposition Patient Disposition: Home Condition: Stable Discharge Details Clinical Impression: Light-headed feeling, Dyspnea Primary Care Provider: Tete Goins ED Provider: Nawaf eDan Home Meds and New Rx's Prescriptions: Continued omeprazole 20 mg capsule,delayed release(DR/EC) 20 mg PO DAILY Qty: 90 3RF rosuvastatin [Crestor] 5 mg tablet 5 mg PO Q48H Qty: 45 10RF diazepam 2 mg tablet 2 mg PO BID PRN (Reason: anxiety) Qty: 30 0RF aspirin [Adult Low Dose Aspirin] 81 mg tablet,delayed release (DR/EC) 81 mg PO DAILY Qty: 1 0RF multivitamin [Once Daily] 1 EACH tablet 1 ea PO DAILY calcium carbonate 500 MG tablet 500 mg PO DAILY omega-3 fatty acids-fish oil 1 EACH capsule 1 ea PO DAILY No Action albuterol sulfate 90 mcg/actuation HFA aerosol inhaler 2 puff inhalation Q8H PRN (Reason: bronchospasm) Qty: 6.7 4RF Patient Comments: took for first time today at [facility], profoundly shaky and dizzy after, came to ED 01/14/24 fluticasone furoate-vilanterol [Breo Ellipta] 100-25 mcg/dose blister with device 1 inh inhalation Q24H Qty: 60 4RF Hold Instructions: Pt Stopped/Never Started Patient Comments: made pt feel out of control amlodipine 5 mg tablet 5 mg PO DAILY Qty: 90 6RF Hold Instructions: Pt Stopped/Never Started Patient Comments: stopped 01/10 r/t dizziness budesonide-formoterol [Symbicort] 80-4.5 mcg/actuation HFA aerosol inhaler 2 puff inhalation BID Qty: 30.6 4RF Discharge Instructions Additional Instructions: Your imaging and lab work did not show any concerning findings Follow-up with your primary care provider within 1 to 2 weeks and follow-up with his outpatient testing that they ordered If you feel more ill, have severe chest pain or difficulty breathing return to the emergency department for reevaluation HPI General Date/Time Provider Initiated Documentation: 01/14/24 14:20. Limitations to Documentation: no limitations. Information obtained by: patient. History of Present Illness 78 year old F presents to the emergency department with the chief complaint of Lightheaded, described as moderate, Patient started experiencing this week(s) (2) and it has been intermittent. No relieving factors improve symptom(s), No exacerbating factors reported . Patient notes no other symptoms. and shortness of breath; denies chest pain and fever/chills. Patient did receive the following treatments prior to arrival, none Related Data Home Medications Medication Instructions Recorded Confirmed calcium carbonate 500 mg PO DAILY 12/20/12 01/14/24 multivitamin (Once Daily tablet) 1 ea PO DAILY 12/20/12 01/14/24 omega-3 fatty acids-fish oil 300 1 ea PO DAILY 12/20/12 01/14/24 mg-1,000 mg capsule aspirin 81 mg tablet,delayed 81 mg PO DAILY #1 tab 04/29/20 01/14/24 release (Adult Low Dose Aspirin) budesonide-formoterol HFA 80 2 puff inhalation BID #30.6 grams 01/31/23 01/14/24 mcg-4.5 mcg/actuation aerosol inhaler (Symbicort) albuterol sulfate 90 mcg/actuation 2 puff inhalation Q8H PRN 06/21/23 01/14/24 aerosol inhaler bronchospasm #6.7 grams omeprazole 20 mg capsule,delayed 20 mg PO DAILY #90 caps 06/21/23 01/14/24 release rosuvastatin 5 mg tablet (Crestor) 5 mg PO Q48H #45 tab-caps 06/21/23 01/14/24 amlodipine 5 mg tablet 5 mg PO DAILY #90 tabs 01/08/24 01/14/24 diazepam 2 mg tablet 2 mg PO BID PRN anxiety #30 01/08/24 01/14/24 tab-caps fluticasone furoate 100 1 inh inhalation Q24H #60 ea 01/08/24 01/14/24 mcg-vilanterol 25 mcg/dose inhalation powder (Breo Ellipta) Previous Rx's Medication Instructions Recorded aspirin 81 mg tablet,delayed 81 mg PO DAILY #1 tab 04/29/20 release (Adult Low Dose Aspirin) budesonide-formoterol HFA 80 2 puff inhalation BID #30.6 grams 01/31/23 mcg-4.5 mcg/actuation aerosol inhaler (Symbicort) albuterol sulfate 90 mcg/actuation 2 puff inhalation Q8H PRN 06/21/23 aerosol inhaler bronchospasm #6.7 grams omeprazole 20 mg capsule,delayed 20 mg PO DAILY #90 caps 06/21/23 release rosuvastatin 5 mg tablet (Crestor) 5 mg PO Q48H #45 tab-caps 06/21/23 amlodipine 5 mg tablet 5 mg PO DAILY #90 tabs 01/08/24 diazepam 2 mg tablet 2 mg PO BID PRN anxiety #30 01/08/24 tab-caps fluticasone furoate 100 1 inh inhalation Q24H #60 ea 01/08/24 mcg-vilanterol 25 mcg/dose inhalation powder (Breo Ellipta) Allergies Allergy/AdvReac Type Severity Reaction Status Date / Time latex Allergy Intermediate Skin Rash Verified 01/14/24 13:57 as a child Sulfa (Sulfonamide Allergy Intermediate Hives Verified 01/14/24 13:57 Antibiotics) atorvastatin AdvReac Intermediate abdominal Verified 01/14/24 13:57 upset General Stated Complaint: Dizzy/Sync CHERYL: 3 Review of Systems All systems reviewed & are unremarkable except as noted in HPI and below Constitutional Constitutional: Denies chills, Denies fever(s) and Reports weakness Cardiovascular Cardiovascular: Denies chest pain and Reports dyspnea Respiratory Respiratory: Denies cough and Reports dyspnea Gastrointestinal Gastrointestinal: Denies abdominal pain, Denies nausea and Denies vomiting Musculoskeletal Musculoskeletal: Denies joint swelling Neurologic Neurologic: Reports weakness Psychiatric Psychiatric: Denies depression Exam Const General: no acute distress Orientation: alert HENHI Head: normal to inspection Ears: external ears normal General nose exam: external nose normal Mouth: moist mucous membranes Eyes General: appearance normal, both eyes and all related structures Neck Neck: normal visual inspection Resp Effort & Inspection: normal respiratory effort and able to speak in complete sentences Auscultation: clear to auscultation bilaterally Cardio Jugular venous pressure: no JVD Rate: regular rate Heart Sounds: no murmurs GI Palpation: soft and nontender Skin General skin exam: no rashes or lesions noted Neuro General: patient alert and patient oriented x3 Extrem General: normal to inspection Psych Mental Status: mental status grossly normal Course Vital Signs Vital signs: Vital Signs Temperature 36.7 C 01/14/24 14:00 Pulse 86 01/14/24 14:00 Respiratory Rate 16 01/14/24 14:00 Blood Pressure 174/90 H 01/14/24 14:00 Pulse Oximetry 99 01/14/24 14:00 Temperature 36.7 C 01/14/24 14:00 Temperature Source Temporal Artery Scan 01/14/24 14:00 Pulse 86 01/14/24 14:00 Respiratory Rate 16 01/14/24 14:26 Respiratory Effort Normal, Non-Labored 01/14/24 14:26 Respiratory Depth Normal 01/14/24 14:26 Respiratory Pattern Normal 01/14/24 14:26 Blood Pressure 174/90 H 01/14/24 14:00 Blood Pressure Position Sitting 01/14/24 14:00 Pulse Oximetry 99 01/14/24 14:00 Oxygen Delivery Method Room Air 01/14/24 14:00 Oxygen Flow Rate 0 01/14/24 14:00 Pain Level 8 01/14/24 14:00 Medical Decision Making 78-year-old female with a prior history of CVA, hyperlipidemia, who comes in with several weeks of intermittent lightheadedness, feeling exhausted. She was at respiratory therapy getting PFTs when she started feeling shaky and lightheaded so was referred here. She denies any loss of consciousness, has no severe headaches but states her head is felt full for the past couple weeks. She also has noted some mild difficulty breathing, has no difficulty breathing currently. No chest pain, no fevers, no chills. She is alert and oriented x 4 in no distress, does appear tired. She is speaking in full sentences, has no focal deficits, cranial nerves II through XII are intact. Lungs are clear, she is mildly hypertensive otherwise stable vital signs. Unclear etiology for her continued feelings of lightheadedness and exhaustion. Will obtain a CBC, CMP, EKG and troponin, given the associated difficulty breathing also obtain a CTA of the chest to exclude PE. Will also obtain a CT of her head given her symptoms of head fullness to exclude etiologies such as mass. Her symptoms seem more like lightheadedness and not dizziness and has no focal deficits so doubt central CVA. Labs and imaging unremarkable, has had symptoms for over 3 hours and do not feel delta troponin indicated. She has been able to ambulate unassisted with normal gait. Discussed results with her and she feels comfortable with discharge, will follow-up with her primary care provider and return precautions given Differential Diagnosis Differential Diagnosis: Anemia, electrolyte abnormality, cancer Medical Records Medical records reviewed: Yes I reviewed the patient's medical records. Imaging Data Radiologic Study: Attestation: I personally reviewed and interpreted this imaging study as follows: Imaging: CT Scan Radiologist's impression: No acute findings on head CT Radiologic Study #2: Attestation: I personally reviewed and interpreted this imaging study as follows: Imaging: CT Scan Radiologist's impression: No acute findings on CTA of the chest Lab Data Lab results reviewed: Yes I reviewed the patient's lab results. ECG Data Attestation: I personally reviewed and interpreted this ECG (s) as follows: Prior ECG tracings: available for review Interpretation: Sinus rhythm, rate of 78, OR 167, no STEMI Quality:SDOH Health Related Social Needs: No Data to Display PFSH All Active Problems (Updated 01/14/24 @ 16:38 by Nawaf Dean MD) Dyspnea (Acute) Exhaustion (Acute) Light-headed feeling (Acute) Prediabetes (Acute) Serrated adenoma of colon (Acute ~01/2021) Balance disorder (Acute 04/22/15) Family history of colon cancer (Acute) Hyperlipidemia (Acute 12/23/12) TIA (transient ischemic attack) (Acute 02/13/17) 02/11/17-LEFT LACUNAR INFARCT BY MRI Abnormal MRI (Acute 03/16/14) lacunar infarct - frontal lobe H/O: CVA (cerebrovascular accident) (Acute) Hypertension (Chronic) Cough (Acute) Medical History (Updated 01/14/24 @ 16:38 by Nawaf Dean MD) Cataract of both eyes (12/17/17) Mucous polyp of cervix (08/30/04) Surgical History (Updated 02/09/21 @ 13:16 by Penelope Allen RN) History of colonoscopy with polypectomy (~02/04/21) Hx of eye surgery post-cataract exctraction needed surgery for blurry eyes History of arthroscopy of knee Extraction of cataract 12/31/17 (R) DR. RENEE 01/14/18 (L) DR. RENEE Arthroplasty of knee (~2007) Family History (Updated 06/21/23 @ 14:46 by Jeir East) Mother , 94 Essential hypertension Hyperlipidemia Stroke Dementia Hypertension Father , 69 Heart disease ANGINA Colon cancer Sister Stroke Colon cancer Brother , 78 Heart disease Colon cancer Cancer Maternal Grandfather , 82 Essential hypertension CHF (congestive heart failure) Heart disease Paternal Grandfather No problems noted. Maternal Grandmother , 80 Diabetes Stroke Paternal Grandmother No problems noted. Sister Depression Fibromyalgia Brother Diabetes Essential hypertension Heart disease PACEMAKER Hyperlipidemia Son Essential hypertension Heart disease Daughter Gestational diabetes Diabetes Colon cancer Other Family history of colon cancer Social History (Updated 06/21/23 @ 15:02 by Jeri East) Smoking/Tobacco Use Status: Never Second Hand Exposure: Yes Smoking risk assessment performed?: Yes Alcohol Intake: former Drug use: Never Substance use type: does not use Counseling given: No Counseling provided: none Caregiver/Support person: No Household members: spouse Housing: house Communication Needs: Corrective Lenses Do you need help understanding health information?: Never Pets and animals: No Sexually active: Yes Do you think of yourself as: straight/heterosexual Current gender identity: female What is your relationship status?: How often do you talk on the phone with friends or family?: twice per week How often do you get together with friends or relatives?: once per week How often do you attend cheondoism or protestant services?: 4 or more times per year Do you belong to any clubs or organized social groups?: no Panel score (0-1 are the most socially isolated patients): 3 What type of physical activity do you participate in: walking Duration: 15-30 minutes/day Frequency: 5-6 times per week Rosa/Yazdanism: [employer] Special rosa needs: No Agree to transfusion: Yes Seatbelt use: always Drive intox 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
[2024-01-14] MEDS: Normal Saline 1,000 ML 1000 ML IV (15:31)
[2024-01-14 15:34] LABS: Abs Immature Grans 0.03 10^3/uL (0.0-0.06); Absolute Basophil Count 0.06 10^3/uL (0.0-0.2); Absolute Eosinophil Count 0.11 10^3/uL (0.0-0.7); Absolute Monocyte Count 0.57 10^3/uL (0.1-0.8); Absolute Neutrophil Count 5.53 10^3/uL (1.2-6.7); Basophils % 0.6; Eosinophils % 1.2; HGB 14.5 g/dL (11.2-15.7); Immature Grans % 0.3; Lymphocytes % 32.3; MCH 30.3 pg (27.0-33.0); MCHC 33.7 % (32.0-36.0); MCV 90 fL (80-95); MPV 8.3 fL (8.0-11.0); Monocytes % 6.1; Neutrophils % 59.5; Platelet Count 377 10^3/uL (130-400); RBC 4.79 10^6/uL (3.93-5.22); RDW 12.3 % (11.7-14.6); RDW-SD 40.5 fL
[2024-01-14 15:47] LABS: PTT Activated 25.7 sec (23.6-32.8); Prothrombin Time 9.9 sec (9.1-11.1)
[2024-01-14 15:50] LABS: Bilirubin Negative (Negative); Blood Negative (Negative); Clarity Clear (Clear); Glucose Negative (Negative); Ketones Negative (Negative); Leukocyte Esterase Negative (Negative); Nitrite Negative (Negative); Specific Gravity 1.015 (1.005-1.025); Urobilinogen 0.2 mg/dL (Up to 0.2)
[2024-01-14 15:57] LABS: ALT 32 U/L (14-59); AST 19 U/L (15-37); Albumin 4.3 g/dL (3.4-5.0); Alkaline Phosphatase 80 U/L (46-116); Anion Gap 9.1 mmol/L (3-11); BUN 14 mg/dL (7-18); Bilirubin, Total 0.4 mg/dL (0.2-1.0); CO2 29.9 mmol/L (21.0-32.0); CREATININE 0.6 mg/dL (0.55-1.02); Calcium 9.3 mg/dL (8.5-10.1); Chloride 101 mmol/L (98-107); Estimated GFR 92.39 (mL/min/1.73m2); Glucose 99 mg/dL (74-106); Magnesium 2.3 mg/dL (1.8-2.4); Potassium 3.7 mmol/L (3.5-5.1); Sodium 140 mmol/L (136-145); TSH (W/Ref FT4) 2.14 uIU/mL (0.36-3.74)
[2024-01-14] MEDS: Omnipaque 350 MG/ML 100 ML BTL IJ (16:00)
[2024-01-14 16:03] LABS: Troponin I < 50 ng/L (< or =60)
[2024-01-14 17:07] VITALS: BP 118/73; PULSE 75; RESP 16; TEMP 36.2; O2SAT 96
--- NOTE | 2024-01-16 07:19 | NUR.NOTE ---
Accessed pt chart to reconcile EKG orders with EKG?s in [facility]. Nursing Note:
== END 2024-01-14 17:11 | disposition home or self-care (01) ==
PROVIDERS: Emergency Provider Emergency Medicine; PCP Family Medicine
DX: R42 Dizziness and giddiness (principal); R06.09 Other forms of dyspnea; I10 Essential (primary) hypertension; E78.5 Hyperlipidemia, unspecified; Z86.73 Personal history of transient ischemic attack (TIA), and cerebral infarction without residual deficits; Z79.82 Long term (current) use of aspirin
CPT/HCPCS: 71275; 80053; 93005; 93308; 96360; 99285; 70450; 81003; 83735; 84443; 84484; 85025; 85610; 85730; 93010; 99284; J3490

== ENCOUNTER → 2024-01-30 04:19 | Outpatient (CLI) | payer MEDICARE, SELFPAY ==
--- NOTE | 2024-01-30 14:28 | DI.US_ITS ---
APPROVED REPORT EXAM: Comprehensive 2D, Doppler, and color-flow Echocardiogram Patient Location: Out-Patient Section Repairer: Isabel Rasmussen RDCS (AE) Indications: SOB, Fatigue Other Information Study Quality: Adequate Conclusion Normal left ventricular wall thickness and chamber size. Ejection fraction is 60%. Wall motion is n ormal Normal right ventricular size and function Both atria are normal in size There is no structural or hemodynamically significant valvular disease Estimated right ventricular systolic pressure is 18 mmHg Dilated ascending aorta measuring 3.63 cm Wall motion Left Ventricle The left ventricle is normal size. The left ventricular systolic function is normal. The left ventric ular ejection fraction is within the normal range. There is normal left ventricular wall thickness. T here is normal LV segmental wall motion. There is no ventricular septal defect visualized. LVEF is 60 %. Right Ventricle The right ventricle is normal size. The right ventricular systolic function is normal. Atria The left atrium size is normal. The right atrium size is normal. The interatrial septum is intact wit h no evidence for an atrial septal defect. Aortic Valve The aortic valve is normal in structure. There is no aortic valvular stenosis. No aortic regurgitatio n is present. Mitral Valve The mitral valve is normal in structure. No evidence of mitral valve stenosis. Trace mitral regurgita tion. Tricuspid Valve The tricuspid valve is normal in structure. There is no tricuspid valve stenosis. Trace tricuspid reg urgitation. The RVSP is 17.9 mmHg. Pulmonic Valve The pulmonary valve is normal in structure. There is no pulmonic valvular stenosis. There is no pulmo alona valvular regurgitation. Great Vessels The aortic root is normal in size. The ascending aorta is mildly dilated. Aortic arch is not well vi sualized. IVC is normal in size and collapses >50% with inspiration. Pericardium There is no pericardial effusion. 2D Dimensions IVSD d PLAX 0.88 cm F: 0.6-1.0 Ao Root d 2.50 cm F: 2.7 - 3.3 LVPW d PLAX 0.94 cm F: 0.6 - 1.0 Ao Asc Diam d 3.63 cm F: 2.3 - 3.1 LVID d PLAX 4.19 cm F: 3.8 - 5.2 LVDs 2.92 cm F: 2.2 - 3.5 LV EF Teichholz 58.1 % FS 30.33 % LV EDV (Teich) 78.2 mL LV ESV (Teich) 32.8 mL M-Mode TAPSE 2.59 cm (M/F) >1.7 Auto EF LV EDV A4C 82.9 mL LV EDV A2C 87.1 mL LV EDV BP 87.1 mL LV ESV A4C 34.1 mL LV ESV A2C 35.6 mL LV ESV BP 35.8 mL LVEF(%) A4C 58.9 % LVEF(%) A2C 59.1 % LVEF(%) BP 58.9 % LV SV A4C 48.9 ml LV SV A2C 51.5 ml LV SV BP 51.3 ml LV CO A4C 3.5 L/min LV CO A2C 3.9 L/min LV CO BP 3.7 L/min HR A4C 71.15 BPM HR A2C 75.96 BPM LV EDV Index (BP) LA Volume LA Length A4C 4.5 cm LA Length A2C 5.1 cm LA Area A4C s 11.74 cm2 LA Area A2C s 16.84 cm2 LA Vol A4C A-L 26.11 mL LA Vol A2C A-L 46.85 mL LA Vol Biplane A-L 37.5 mL LA Vol/BSA A4C A-L LA Vol/BSA A2C A-L LA Vol/BSA BP A-L 31.5 mL/m2 LA Vol A4C MOD 24.6 mL LA Vol A2C MOD 43.5 mL LA Vol BP MOD 35.0 mL RA Volume RA Area A4C 8.6 cm2 RA ESV A4C (A-L) 16.2mL RA Vol/BSA A4C A-L RA Length A4C 3.9 cm RA ESV A4C (MOD) 15.9mL LV Diastology MV E' medial 0.067 (>0.07 m/s) MV E Vmax 0.69 (0.4-1.3 m/s) MV E/E' MED 10.32 (<14) MV A Vmax 1.05 (0.4-1.3 m/s) MV E' lateral 0.067 (>0.1 m/s) E/A Ratio 0.7 MV E/E' LAT 10.32 (<14) MV E' Average 0.067 m/s MV E/E'(average) 10.32 Aortic Valve AoV Vmax 1.47 m/s LVOT Vmax 1.13 m/s AoV Peak Grad 8.6 mmHg LVOT Peak Grad 5.1 mmHg AoV Area (Vmax) 1.96 cm2 LVOT VTI 0.233 m AoV VTI 0.314 m LVOT Mean Grad 2.6 mmHg AoV Mean Aiden. 0.97 m/s LVOT SV 59.22 mL AoV Mean Grad 4.3 mmHg LVOT Diam s 1.75 cm AoV Area (VTI) 1.88 cm2 Velocity Ratio 0.77 Mitral Valve MV DT 261 (160-240 msec) MV Vmax TIPS 0.96 m/s MV Mean Grad 1.4 (<2mmHg) MV VTI 0.239 m Pulmonary Valve PV Vmax 1.16 (0.5-1.5 m/s) RVOT Vmax 0.77 m/s PV Peak Grad 5.4 mmHg RVOT Peak Gr. 2.4 mmHg PV Mean Aiden 0.75 m/s RVOT VTI 0.165 m PV Mean Grad 2.7 mmHg RVOT Mean Gr. 1.2 mmHg Tricuspid Valve RA Pressure 3.00 mmHg TR Vmax 1.93 m/s TV S' 0.14 m/s TR Peak Grad 14.9 mmHg RVSP (TR) 17.9 mmHg
== END ==
PROVIDERS: PCP Family Medicine; Visit Provider Family Medicine
DX: R06.02 Shortness of breath (principal); R53.83 Other fatigue; I34.0 Nonrheumatic mitral (valve) insufficiency; I36.1 Nonrheumatic tricuspid (valve) insufficiency
CPT/HCPCS: 93306

== ENCOUNTER → 2024-01-31 01:44 | Outpatient (CLI) | payer MEDICARE, SELFPAY ==
--- NOTE | 2024-01-31 08:30 | DI.NM_ITS ---
APPROVED REPORT Exam: Pharmacologic Patient Location: Out-Patient Room/Bed: Stress Nurse: Haley West RN Ordering Provider:LEIGH HAMMOND, Contact Number: [phone] BMI: 30.07 Baseline Rhythm: Sinus Rhythm Indications: Dyspnea, anxiety, chest pain, HTN, prediabetes, Medical History Medical History: HTN, pre DM, CVA, HLD, TIA Cardiac Medications: Omeprazole, crestor, aspirin, amlodipine, albuterol sulfate, symbicort Allergies: Latex, sulfas, atorvastatin Cardiac Risk Factors: Family hx, prediabetes, HTN Previous Cardiac Procedures: None Pretest Chest Pain Characteristics: None Exercise History: Sedentary Physical Disabilities: Dizziness Lung Sounds: Clear to auscultation Heart Sounds: Regular Stress Test Details Test: Pharmacologic stress testing performed using 0.4 mg of regadenoson per 5 mL given IV over 10 s econds. Reason for pharmacologic stress test: General weakness, dizziness. Nuclear Acquisition: Rest Tc-99m/Stress Tc-99m 1 day Rest Isotope: Tc-99m Sestamibi. Dose: 10.0 Date: 01/31/2024 Injection Time: 1130 Stress Isotope: Tc-99m Sestamibi. Dose: 30.0 Date: 01/31/2024 Injection Time: 1315 HR Resting HR Supine: 77 bpm Max Heart Rate (APMHR): 143.580812 bpm Target HR (85% APMHR): 121.120733 bpm Max HR Achieved: 111 bpm % of APMHR: 77.62 Recovery HR: 95 bpm BP Resting BP Supine: 182/98 mmHg Max BP: 182/98 mmHg Recovery BP: 147/90 mmHg ECG Resting ECG: Sinus Rhythm Ectopy: None Stress ECG: Sinus Tachycardia ST Change: Nondiagnostic low heart rate Arrhythmia: None Recovery ECG: Sinus Rhythm Recovery ST Change: Nondiagnostic low heart rate Recovery Arrhythmia: None Clinical Angina Score: None Rate Pressure Product: Stress ECG Conclusion 1. Resting EKG showed low voltage and poor R wave progression 2. Patient underwent testing using pharmacologic stress with regadenoson 3. Peak heart rate achieved was 78% of predicted for age 4. Electrocardiographic portion of the test was nondiagnostic 5. See MPI report Stress Test Summary STAGE HR BP SpO2 Symptoms NOTES Supine 77 182/98 98 1 min post Lexiscan injection 108 152/80 3 min post Lexiscan injection 98 168/88 6 min post Lexiscan injection 95 147/90 98 MPI Conclusion Myocardial perfusion is normal. There is no ischemia or evidence of prior infarction Ejection fraction is 78%. Wall motion is normal Radiologist Interpretation Radiologist agrees with Host/Hostess Ground's Interpretation. Radiologist Interpretation by: Kristin East MD Interpretation Date/Time: 01/31/2024 15:47:06
[2024-01-31] MEDS: Regadenoson 0.4 MG/5 ML SYR IVP (13:10)
== END ==
PROVIDERS: PCP Family Medicine; Visit Provider Family Medicine
DX: R06.00 Dyspnea, unspecified (principal); Z74.09 Other reduced mobility; I10 Essential (primary) hypertension; R73.03 Prediabetes
CPT/HCPCS: 78452; 93016; 93018; 93017; J2785

== ENCOUNTER → 2024-10-02 11:44 | Outpatient (BNVA) | payer MEDICARE, SELFPAY | PROVIDERS: PCP Family Medicine; Referring Provider Family Medicine; Visit Provider Physical Therapy Assistant | DX: Z12.11 Encounter for screening for malignant neoplasm of colon (principal); R73.03 Prediabetes; I10 Essential (primary) hypertension ==

== ENCOUNTER 2024-10-13 09:49 | Day surgery (SDC) | payer MEDICARE, SELFPAY ==
--- NOTE | 2024-10-12 17:40 | W.PM.DSUDISC ---
Date of service: 10/13/24 Discharge Plan Disposition Patient Disposition: Home Condition: Good Discharge Details Reason For Visit: screening colonoscopy Attending Provider: Angel Mosher Primary Care Provider: Tete Goins Home Meds and New Rx's Prescriptions: Continued albuterol sulfate 90 mcg/actuation HFA aerosol inhaler 2 puff inhalation Q8H PRN (Reason: bronchospasm) Qty: 6.7 4RF Patient Comments: took for first time today at [facility], profoundly shaky and dizzy after, came to ED 01/14/24 sertraline 50 mg tablet 50 mg PO DAILY Qty: 90 4RF aspirin [Adult Low Dose Aspirin] 81 mg tablet,delayed release (DR/EC) 81 mg PO DAILY Qty: 1 0RF multivitamin [Once Daily] 1 EACH tablet 1 ea PO DAILY calcium carbonate 500 MG tablet 500 mg PO DAILY omega-3 fatty acids-fish oil 1 EACH capsule 1 ea PO DAILY rosuvastatin [Crestor] 5 mg tablet 5 mg PO Q48H Qty: 45 10RF omeprazole 20 mg capsule,delayed release(DR/EC) 20 mg PO DAILY Qty: 90 3RF Discontinued bisacodyl [Dulcolax (bisacodyl)] 5 mg tablet,delayed release (DR/EC) 5 mg PO ONCE Qty: 4 0RF Rx Instructions: Take per colonoscopy instructions provided by ordering providers office polyethylene glycol 3350 17 gram/dose powder 17 g PO ONCE Qty: 238 0RF Rx Instructions: Take per colonoscopy instructions provided by ordering providers office Discharge Instructions Instructions: Colon polyps, Diverticulosis Additional Instructions: Pat, I hope you are comfortable through the colonoscopy today and that you feel great this afternoon. Everything went very smoothly. Your prep was excellent and I could see everything fine. I did find and remove the single polyp today. This will be sent off for testing since polyps to come in different varieties, use the information from the analysis to help guide the timing of future colonoscopies. Incidentally, you also have a little bit of diverticulosis. These are little weak spots in the muscular portion of the colon wall. They can get infected or inflamed, which is typically experienced as sharp pain on the left lower portion of the abdominal wall. We refer to these flareups as episodes of diverticulitis. I hope you are is never bother you. I did attach a little bit of information here about diverticular management as well as colorectal polyps. If you have any questions at all, please do not hesitate to ask, otherwise, the office will be in touch once the polyp report is available. 1. If tolerated, consume a soft, low fiber diet for 1-2 days. [address] Do not drive, drink alcohol, operate machinery, make critical decisions, or do activities that require coordination or balance for 24 hours. 3. Because air was put into your colon during the procedure, expelling air from your rectum (passing gas or farting) is normal. 4. You may not have a bowel movement for 1-3 days because of the colonoscopy prep. This is normal. 5. Go directly to the emergency room if you notice any of the following: Develop chills (warm to touch), or if you have a thermometer and your temperature is above 101 Difficulty breathing or difficultly swallowing Persistent vomiting Severe abdominal pain, other than gas cramps Severe chest pain Black, tarry stools Any bleeding ? exceeding one tablespoon 6. Call your physician if the site where your intravenous was started becomes red, swollen, painful, and warm to touch. 7. Your physician has reviewed your pre-procedure medications. Please continue to take those medications as previously ordered. You will be given specific information/education regarding any changes to your medications before leaving. Activity:: Activity as Tolerated Diet:: As Tolerated Discharge Orders Discharge Orders: Discharge Order (Routine); Ordered 10/12/24 Ordered By: Angel Mosher DS: Diagnosis Discharge Diagnosis (1) Encounter for screening colonoscopy: Status: Acute Asessment and Plan: Follow-up on polypectomy results
--- NOTE | 2024-10-12 17:41 | COLE_ITS ---
Date of service: 10/13/24 Time of Service: 12:21 Colonoscopy Report Date of procedure: 10/13/24 Pre-op diagnosis general: screening colonoscopy Post-op diagnosis procedure note: other (Diverticulosis, colon polyp) Procedure: colonoscopy Surgeon: Angel Mosher Anesthesia Type: General:No Airway Estimated blood loss (mL): 5 Pathology: other (0.5 cm flat polyp at 80 cm) Complications: None Disposition: same day Indications: Judi is a 79 year old woman with a history of adenomatous polyps. She needs her next screening colonoscopy Prep: Miralax/Dulcolax Procedure Start Time: 11:52 Procedure End Time: 12:09 Retraction Time: 11 Findings: Sigmoid diverticulosis; 0.5 cm flat polyp at 80 cm Procedure Description: After the induction of anesthesia, and with the patient in left lateral decubitus position, I began by performing an external anorectal exam.? Perineum and skin were normal, as was the anal verge.?? Next, I performed a digital rectal exam.? I did not appreciate any abnormal findings.? Next, I advanced a colonoscope into the rectal vault.? I performed retroflexion.? This appeared normal.? Using insufflation, I then advanced the colonoscope beyond the rectal folds and into the sigmoid colon before advancing towards the cecum.? There was sigmoid diverticulosis.? The scope was noted to be in the cecum by identification of the ileocecal valve and appendiceal orifice.? I then began withdrawing the colonoscope using repeated irrigation as necessary for full evaluation of the colonic mucosa. Around 80 cm from the anal verge was a 0.5 cm flat polyp. This was removed with cold snare polypectomy. There was minimal bleeding. ?Once the scope was withdrawn to the level of the rectum, great care was taken to examine portions of the rectal folds.? Finally, the scope was withdrawn and the patient was brought to the same-day surgery recovery unit as the anesthetic wore off. ?The findings and instructions were shared with the patient prior to discharge. [place] Bowel Prep [place] Bowel Prep Right Colon: 3 Left Colon: 3 Transverse Colon: 3 Total Score: 9
[2024-10-13 10:52] VITALS: BP 151/79; PULSE 74; RESP 20; TEMP 36.1; O2SAT 98
[2024-10-13] MEDS: Lactated Ringers 1,000 ML 80 ML IV (11:04)
--- NOTE | 2024-10-13 11:42 | ANES.PREOP_ITS ---
General Info Date of Service Date Performed: 10/13/24 Height: 5 ft 1 in Weight: 67.4 kg Body Mass Index (BMI): 28.0 Surgical Procedure: Operation Date: 10/13/24 12:05 Proposed Procedure Side Surgeon gayla Mosher MD Meds Allergies and Home Medications Allergies Allergy/AdvReac Type Severity Reaction Status Date / Time latex Allergy Intermediate Skin Rash Verified 10/13/24 10:50 as a child Sulfa (Sulfonamide Allergy Intermediate Hives Verified 10/13/24 10:50 Antibiotics) atorvastatin AdvReac Intermediate abdominal Verified 10/13/24 10:50 upset Home Medication ?Medication ?Instructions ?Recorded calcium carbonate 500 mg PO DAILY 12/20/12 multivitamin (Once Daily tablet) 1 ea PO DAILY 12/20/12 omega-3 fatty acids-fish oil 300 1 ea PO DAILY 12/20/12 mg-1,000 mg capsule aspirin 81 mg tablet,delayed 81 mg PO DAILY #1 tab 04/29/20 release (Adult Low Dose Aspirin) albuterol sulfate 90 mcg/actuation 2 puff inhalation Q8H PRN 06/21/23 aerosol inhaler bronchospasm #6.7 grams sertraline 50 mg tablet 50 mg PO DAILY #90 tabs 02/14/24 omeprazole 20 mg capsule,delayed 20 mg PO DAILY #90 caps 07/14/24 release rosuvastatin 5 mg tablet (Crestor) 5 mg PO Q48H #45 tab-caps 07/14/24 Current Visit Medications: Current Medications Generic Name Dose Route Start Last Admin Trade Name Freq PRN Reason Stop Dose Admin Ringer's Solution 1,000 mls @ 80 mls/hr 10/13/24 10:45 10/13/24 11:04 IV 11/12/24 10:44 80 mls/hr INFUSION AMMY Administration IV Miscellaneous Supplies 1 each 10/13/24 06:00 Iv Access IV 10/13/24 23:59 DIRECTED AMMY Ondansetron HCl 4 mg 10/12/24 17:42 Ondansetron 4 Mg/2 Ml Vial IVP 11/11/24 17:41 Q4H PRN PRN Nausea / Vomiting Sodium Chloride 0 ml 10/13/24 06:00 Normal Saline Flush 10 Ml Syr IV 10/13/24 23:59 PRN PRN Sodium Chloride 0 ml 10/13/24 06:00 Normal Saline 10 Ml Vial IJ 10/13/24 23:59 DIRECTED PRN Sterile Water 0 ml 10/13/24 06:00 Water,Injection,Sterile 10 Ml Vial IJ 10/13/24 23:59 DIRECTED PRN PFSH Active Problems Active Problems: Problem Status Onset Code Encounter for screening colonoscopy Acute Z12.11 Encounter for hepatitis C screening test for low risk patient Acute Z11.59 Depression Chronic F32.A Decreased ambulation status Acute Z74.09 Exhaustion Acute R53.83 Prediabetes Acute R73.03 Serrated adenoma of colon Acute ~01/2021 D12.6 Balance disorder Acute 04/22/15 R26.89 Family history of colon cancer Acute Z80.0 Hyperlipidemia Acute 12/23/12 E78.5 TIA (transient ischemic attack) Acute 02/13/17 G45.9 Abnormal MRI Acute 03/16/14 R93.89 H/O: CVA (cerebrovascular accident) Acute Z86.73 Hypertension Chronic I10 Cough Acute R05 Medical History Medical History Cataract of both eyes (12/17/17) Mucous polyp of cervix (08/30/04) Surgical History Surgical History History of colonoscopy with polypectomy (~02/04/21) Hx of eye surgery post-cataract exctraction needed surgery for blurry eyes History of arthroscopy of knee Extraction of cataract 12/31/17 (R) DR. RENEE 01/14/18 (L) DR. RENEE Arthroplasty of knee (~2007) Tobacco Smoking/Tobacco Use Status: Never Passive smoking exposure: Yes Second hand exposure: Yes Alcohol Alcohol Intake: former Substance Use Substance use: Never Substance use type: does not use Counseling provided: none Vital Signs and Lab Results Vital Signs Most Recent Vital Signs in EMR: Most Recent Vital Signs Temp Pulse Resp BP Pulse Ox 36.1 C L 74 20 151/79 H 98 10/13/24 10:52 10/13/24 10:52 10/13/24 10:52 10/13/24 10:52 10/13/24 10:52 Lab Results Blood Type / Crossmatch: No Data to Display Complete Blood Count: No Data to Display Complete Metabolic Panel: No Data to Display Liver Function Panel: No Data to Display Coagulation Panel: No Data to Display Cardiac Panel: No Data to Display Arterial Blood Gas: No Data to Display Venous Blood Gas: No Data to Display Pancreas Panel: No Data to Display Thyroid Panel: No Data to Display Infectious Disease: No Data to Display Blood Cultures: No Data to Display Toxicology Panel: No Data to Display Imaging and Studies Imaging and Studies Study information below may be from another EMR and interpreted by another provider. Please see original notes in EMR for more complete details. EKG Summary: EKG PATIENT NAME: Judi Jackson UNIT #: [id number] ORDERING PROVIDER: Nawaf Solis M.D. PRIMARY CARE PROVIDER: TETE GOINS MD, DC DATE/TIME OF SERVICE: 01/14/241609 : 1945 PERFORMING LOCATION: ER APPROVED REPORT Exam: Resting ECG Reason for Exam: lightheaded Patient Location: E HR:78 bpm ECG Measurements Heart Rate 78 AXIS DC 167 P 52 QRSd 92 QRS -13 QT 384 T85 QTc 438 Conclusion Incomplete analysis due to missing data in precordial lead(s) Sinus rhythm...normal P axis, V-rate 60- 99 <Electronically signed by NAWAF SOLIS MD in OV> E-Sign Date: 01/14/24 E-Sign Time: 1616 ADDENDUM APPROVED REPORT Exam: Resting ECG Reason for Exam: lightheaded Patient Location: E HR:78 bpm ECG Measurements Heart Rate 78 AXIS DC 167 P 52 QRSd 92 QRS -13 QT 384 T85 QTc 438 Conclusion Incomplete analysis due to missing data in precordial lead(s) Sinus rhythm...normal P axis, V-rate 60- 99 I have reviewed and I agree with the emergency room physician's ECG interpretation. Electronically signed by: <Electronically signed by Trish Camejo M.D. in OV> 01/15/24 0828 Cosigned by: Stress Test Summary: Patient Name: Judi Jackson Unit #: [id number] Loc: Ordering Provider: Tete Goins M.D., DC Status: [facility] Primary Care Provider: Tete Goins M.D., DC Date of Exam: 01/31/24 Sex: F Admission Date: 01/31/24 : 1945 Age: 78 APPROVED REPORT Exam: Pharmacologic Patient Location: Out-Patient Room/Bed: Stress Nurse: Haley West RN Ordering Provider:TETE GOINS, Contact Number: [phone] BMI: 30.07 Baseline Rhythm: Sinus Rhythm Indications: Dyspnea, anxiety, chest pain, HTN, prediabetes, Medical History Medical History: HTN, pre DM, CVA, HLD, TIA Cardiac Medications: Omeprazole, crestor, aspirin, amlodipine, albuterol sulfate, symbicort Allergies: Latex, sulfas, atorvastatin Cardiac Risk Factors: Family hx, prediabetes, HTN Previous Cardiac Procedures: None Pretest Chest Pain Characteristics: None Exercise History: Sedentary Physical Disabilities: Dizziness Lung Sounds: Clear to auscultation Heart Sounds: Regular Stress Test Details Test: Pharmacologic stress testing performed using 0.4 mg of regadenoson per 5 mL given IV over 10 seconds. Reason for pharmacologic stress test: General weakness, dizziness. Nuclear Acquisition: Rest Tc-99m/Stress Tc-99m 1 day Rest Isotope: Tc-99m Sestamibi. Dose: 10.0 Date: 01/31/2024 Injection Time: 1130 Stress Isotope: Tc-99m Sestamibi. Dose: 30.0 Date: 01/31/2024 Injection Time: 1315 HR Resting HR Supine: 77 bpmMax Heart Rate (APMHR): 143.245797 bpm Target HR (85% APMHR): 121.646327 bpm Max HR Achieved: 111 bpm % of APMHR: 77.62 Recovery HR: 95 bpm BP Resting BP Supine: 182/98 mmHg Max BP: 182/98 mmHg Recovery BP: 147/90 mmHg ECG Resting ECG: Sinus Rhythm Ectopy: None Stress ECG: Sinus Tachycardia ST Change: Nondiagnostic low heart rate Arrhythmia: None Recovery ECG: Sinus Rhythm Recovery ST Change: Nondiagnostic low heart rate Recovery Arrhythmia: None Clinical Angina Score: None Rate Pressure Product: Stress ECG Conclusion 1. Resting EKG showed low voltage and poor R wave progression 2. Patient underwent testing using pharmacologic stress with regadenoson 3. Peak heart rate achieved was 78% of predicted for age 4. Electrocardiographic portion of the test was nondiagnostic 5. See MPI report Stress Test Summary [id number] 1 min post Lexiscan [id number] 3 min post Lexiscan [id number] 6 min post Lexiscan [id number] MPI Conclusion Myocardial perfusion is normal. There is no ischemia or evidence of prior infarction Ejection fraction is 78%. Wall motion is normal Radiologist Interpretation Radiologist agrees with Underground Bolting Machine Operator's Interpretation. Radiologist Interpretation by: Kristin East MD Interpretation Date/Time: 01/31/2024 15:47:06 Ordered By: Tete Goins M.D., DC CC: MADELIN SORENSEN,TRISH SOLORZANO Dictated By: Trish Camejo M.D. 01/31/24 1348 <Electronically signed by Trish Camejo M.D. in [place]> 01/31/24 1551 Transcribed By: Trish Camejo MD 01/31/24 1348 This is privileged, confidential information intended only for the provider named. Any use or distribution by any person other than this provider is strictly prohibited. If you receive this report in error, please notify us immediately at [phone] and return the original report to us at the address above. Thank-you. Pulmonary Function Summary: Pulmonary Function Test PATIENT NAME: Judi Jackson UNIT #: [id number] ADMITTING PROVIDER: Radha Moya M.D. PRIMARY CARE PROVIDER: TETE GOINS MD, DC DATE OF ADMIT: 01/14/24 : 1945 Date of service: 01/14/24 Time of Service: 13:05 Pulmonary Function Test Result Indications: Chronic cough Interpretation Spirometry: There is no airflow limitation. Bronchodilator response not completed as after 1 puff levalbuterol patient became dizzy and taken to the ER. Lung Volumes: Normal lung volumes Airway Pressure: Normal airways resistance Impression Normal pulmonary function testing. Bronchodilator response and DLCO not completed (see above and RT notes) Clinical Correlation therefore is recommended. cc: Dictated by: RADHA MOYA MD Dictated: 01/15/24 Time: 1031 <Electronically signed by Radha Moya M.D.> Date: 01/15/24 1033 Date: Date: Transcribed Date: 01/15/24 Transcribed Time: 1031 By: DARYL This is privileged, confidential information, intended only for the provider named. Any use or distribution by any person other than this provider is strictl y prohibited. If you receive this report in error, please notify us immediately at [phone] and return the original report to us at the address above. Thank you. Anesthesia Assessment and Plan Anesthesia History Personal History: No History of Anesthesia Complications Family History: No Family History of Anesthesia Complications Exercise Tolerance Exercise Tolerance: Metabolic Equivalents>4 Cardiac & Pulmonary Exam Cardiac Exam: Normal S1/S2 Heart Sounds Pulmonary Exam: Clear Bilateral Breath Sounds Implantable Cardiac Device Does patient have a Pacemaker or an ICD?: No Airway Exam Known Difficult Airway: No Mallampati Class: 4 Mouth Opening: Narrow (< 3cm) Thyromental Distance: Less than 3 cm Neck Range of Motion: Limited ROM Neck Circumference: Normal Teeth Condition: Normal Dentition and Generalized Poor Dentition ASA Classification ASA Score: ASA 3 Emergency Case?: No NPO Status NPO Status: NPO Clears >2 hours, Solids >8 hours Anesthesia Plan Resuscitation Status: Full Code Anesthesia Technique: General Anesthesia Airway Planned: Natural Airway Monitors Used: Standard Monitors
[2024-10-13 11:43] VITALS: BMI 28.0
--- NOTE | 2024-10-13 12:05 | BOWEL_PTH ---
PATIENT: Judi Jackson LOC: [facility] U#:[id number] AGE/SX: 79/F ROOM: RE10/13/[address]: Angel Mosher MD : 1945 BED: DIS: 10/13/2024 SPEC #: [id number] RECD: 10/13/24 13:07 STATUS: LYNDSEY RE #: [id number] MEDARDO: 10/13/24 12:[address]: Angel Mosher DEPT: Surgical Specimen RECD BY: Mercedes Cardona ENTERED: 10/13/24 13:08 SP TYPE: Bowel OTHR DR: Tete Goins MD, DC Tissues: 1 - BIOPSY BOWEL Procedures: GROSS AND MICRO LEVEL 4 Comments: [id number]
[2024-10-13 12:11] VITALS: BP 125/68; PULSE 70; RESP 16; TEMP 36.2; O2SAT 94
--- NOTE | 2024-10-13 12:32 | W.ANESPOSTOP ---
Postoperative Evaluation Date, Time and Location Date Performed: 10/13/24 Time Performed: 12:32 Patient Location: Day Surgery Unit Vital Signs Most Recent Imported Vital Signs: Most Recent Vital Signs Temp Pulse Resp BP Pulse Ox 36.2 C L 70 16 125/68 94 10/13/24 12:11 10/13/24 12:11 10/13/24 12:11 10/13/24 12:11 10/13/24 12:11 Pain Score Most Recent Pain Score: Most Recent Pain Score Pain Level 0 10/13/24 12:11 Assessment Mental Status: Awake (Alert & Oriented to Patient Baseline) Airway and Respiratory Function: Patent airway with normal (patient baseline) respiratory exam Cardiovascular Function: Hemodynamically Stable Hydration Status: Adequately Hydrated Nausea & Vomiting: No Nausea or Vomiting Pain: Pt. Denies Any Pain Peripheral Nerve Block: Patient did not receive a nerve block
[2024-10-13 12:40] VITALS: BP 141/72; PULSE 67; RESP 18; TEMP 36.4; O2SAT 96
== END 2024-10-13 12:53 | disposition home or self-care (01) ==
LOC: SUR 09:49
PROVIDERS: PCP Family Medicine; Visit Provider Surgery
PROC: 0DJD8ZZ Inspection of Lower Intestinal Tract, Via Natural or Artificial Opening Endoscopic (ICD-10-PCS; CPT 45378; principal; 2024-10-13 12:00)
DX: Z12.11 Encounter for screening for malignant neoplasm of colon (principal); D12.4 Benign neoplasm of descending colon; K57.30 Diverticulosis of large intestine without perforation or abscess without bleeding
CPT/HCPCS: 45385; 88305; J2704

== ENCOUNTER 2025-02-04 02:06 | Outpatient (CLI) | payer MEDICARE, SELFPAY ==
[2025-02-04 13:20] LABS: Hemoglobin A1C 5.7 % (<5.7)
[2025-02-04 13:55] LABS: ALT 27 U/L (14-59); AST 20 U/L (15-37); Albumin 3.7 g/dL (3.4-5.0); Alkaline Phosphatase 74 U/L (46-116); Anion Gap 3.9 mmol/L (3-11); BUN 17 mg/dL (7-18); Bilirubin, Total 0.4 mg/dL (0.2-1.0); CO2 33.1 mmol/L (21.0-32.0); CREATININE 0.7 mg/dL (0.55-1.02); Calcium 8.9 mg/dL (8.5-10.1); Chloride 101 mmol/L (98-107); Estimated GFR 88.47 (mL/min/1.73m2); Glucose 167 mg/dL (74-106); Potassium 3.7 mmol/L (3.5-5.1); Sodium 138 mmol/L (136-145); Total Protein 7.1 g/dL (6.4-8.2)
[2025-02-05 19:23] LABS: Hepatitis C Ab w Rflx HCV PCR Negative (Negative)
== END 2025-02-04 02:07 | disposition home or self-care (01) ==
LOC: LBO 02:06
PROVIDERS: PCP Family Medicine; Visit Provider Family Medicine
DX: I10 Essential (primary) hypertension (principal); Z11.59 Encounter for screening for other viral diseases; E11.9 Type 2 diabetes mellitus without complications
CPT/HCPCS: 36415; 80053; 86803; 83036

== ENCOUNTER 2025-06-09 10:49 | Outpatient (CLI) | payer MEDICARE, SELFPAY ==
--- NOTE | 2025-06-09 06:30 | DI.RAD_ITS ---
Exam(s) XR FOOT LT COMPLETE XR FOOT RT COMPLETE EXAM: XR FOOT RT COMPLETE CLINICAL HISTORY: Right foot pain,m79.671. TECHNIQUE: 2D digital imaging was performed. Three views of both feet. COMPARISON: CR XR FOOT LT COMPLETE from 06/09/2025 FINDINGS: BONES: No acute fracture is present. No bony destructive lesion is seen. Plantar calcaneal spurs bilaterally. Small enthesophytes at the Achilles insertions. JOINTS: No dislocation present. Mild degenerative changes. SOFT TISSUE: Normal. IMPRESSION: Mild degenerative changes and heel spurs. DATA REPOSITORY: RADIATION DOSE DELIVERED:
== END 2025-06-09 11:09 ==
PROVIDERS: PCP Family Medicine; Visit Provider Podiatrist
DX: M19.071 Primary osteoarthritis, right ankle and foot (principal); M19.072 Primary osteoarthritis, left ankle and foot; M77.31 Calcaneal spur, right foot; M77.32 Calcaneal spur, left foot; M76.822 Posterior tibial tendinitis, left leg; M21.42 Flat foot [pes planus] (acquired), left foot; M79.671 Pain in right foot; M79.672 Pain in left foot
CPT/HCPCS: 99213; 73630

== ENCOUNTER → 2025-07-14 13:30 | Outpatient (BNVA) | payer MEDICARE, SELFPAY | PROVIDERS: PCP Family Medicine; Referring Provider Family Medicine; Visit Provider Podiatrist | DX: M76.822 Posterior tibial tendinitis, left leg (principal); M79.671 Pain in right foot; M79.672 Pain in left foot; M21.42 Flat foot [pes planus] (acquired), left foot | CPT/HCPCS: 99213 ==

== ENCOUNTER 2025-08-10 10:49 | Outpatient (CLI) | payer MEDICARE, SELFPAY ==
[2025-08-10 14:41] LABS: ALT 27 U/L (14-59); AST 23 U/L (15-37); Albumin 3.8 g/dL (3.4-5.0); Alkaline Phosphatase 71 U/L (46-116); Anion Gap 7.5 mmol/L (3-11); BUN 20 mg/dL (7-18); Bilirubin, Total 0.4 mg/dL (0.2-1.0); CO2 30.5 mmol/L (21.0-32.0); Calcium 9.0 mg/dL (8.5-10.1); Chloride 102 mmol/L (98-107); Cholesterol 206 mg/dL (<200); Glucose 93 mg/dL (74-106); HDL Cholesterol 64 mg/dL (>or=50); Potassium 4.0 mmol/L (3.5-5.1); Sodium 140 mmol/L (136-145); Total Protein 7.4 g/dL (6.4-8.2); Vitamin B12 859 pg/mL (193-986)
== END 2025-08-10 10:50 | disposition home or self-care (01) ==
LOC: LOS 10:49
PROVIDERS: PCP Family Medicine; Visit Provider Family Medicine
DX: I10 Essential (primary) hypertension (principal); R26.89 Other abnormalities of gait and mobility
CPT/HCPCS: 80053; 80061; 82607

== ENCOUNTER → 2025-09-02 01:22 | Outpatient (CLI) | payer MEDICARE, SELFPAY ==
--- NOTE | 2025-09-02 06:45 | DI.DEXA_ITS ---
Exam(s) XR DEXA BONE DENSITY W/WO LISA EXAM: XR DEXA BONE DENSITY W/WO LISA CLINICAL HISTORY: post menopausal status,z78.0 TECHNIQUE: COMPARISON: No exams were available for comparison FINDINGS: Lateral Spine Image: Unremarkable. No compression deformities identified. Left hip: Total T-Score: -0.8 Total Z-Score: 1.2 T- and Z-scores: There is no evidence of osteoporosis. There is osteopenia in the femoral neck with a T-score of -1.8. Lumbar Spine: Total T-Score: -0.3 Total Z-Score: 2.4 T- and Z-scores: Within normal limits. IMPRESSION: No evidence of osteoporosis.
== END ==
LOC: DI 01:22
PROVIDERS: PCP Family Medicine; Visit Provider Family Medicine
DX: Z78.0 Asymptomatic menopausal state (principal)
CPT/HCPCS: 77080

== ENCOUNTER → 2025-09-16 13:42 | Outpatient (BNVA) | payer MEDICARE, SELFPAY | PROVIDERS: PCP Family Medicine; Referring Provider Family Medicine; Visit Provider Podiatrist | DX: M76.822 Posterior tibial tendinitis, left leg (principal); M21.42 Flat foot [pes planus] (acquired), left foot; M79.671 Pain in right foot; M79.672 Pain in left foot | CPT/HCPCS: 99213 ==